=== PATIENT | female | born 1990 | race Caucasian/White ===

== ENCOUNTER → 2023-07-20 10:01 | Outpatient (BNVA) | payer SELFPAY | PROVIDERS: Visit Provider Physician Assistant Medical ==

== ENCOUNTER → 2024-01-05 14:50 | Outpatient (BNVA) | payer OTHER, SELFPAY | PROVIDERS: Visit Provider Physician Assistant Medical | DX: S46.812A Strain of other muscles, fascia and tendons at shoulder and upper arm level, left arm, initial encounter (principal); X50.0XXA Overexertion from strenuous movement or load, initial encounter | CPT/HCPCS: 73030; 99202 ==

== ENCOUNTER → 2024-01-09 11:38 | Outpatient (BNVA) | payer OTHER, SELFPAY | PROVIDERS: Visit Provider Physician Assistant Medical | DX: R20.2 Paresthesia of skin (principal); M79.89 Other specified soft tissue disorders; S46.812A Strain of other muscles, fascia and tendons at shoulder and upper arm level, left arm, initial encounter; X50.0XXA Overexertion from strenuous movement or load, initial encounter | CPT/HCPCS: 99213 ==

== ENCOUNTER → 2024-01-16 10:29 | Outpatient (BNVA) | payer OTHER, SELFPAY | PROVIDERS: Visit Provider Physician Assistant Medical | DX: S46.812A Strain of other muscles, fascia and tendons at shoulder and upper arm level, left arm, initial encounter (principal); X50.0XXA Overexertion from strenuous movement or load, initial encounter | CPT/HCPCS: 99213 ==

== ENCOUNTER 2024-01-22 09:22 | Outpatient (REF) | payer OTHER, SELFPAY ==
--- NOTE | ~2024-01-22 | MR_ITS ---
EXAMINATION: MR SHOULDER WITHOUT CONTRAST, LEFT CLINICAL INFORMATION: Decreased range of motion; distal edema. COMPARISON: No prior MR. X-ray left shoulder 01/05/2024. TECHNIQUE: MRI of the shoulder without contrast was performed on a Siemens 1.5 Lashanda unit using standard sequences. FINDINGS: -Study is somewhat limited due to patient body habitus and subsequent suboptimal [id number]. BONE MARROW: -No edema or abnormal infiltrating bone marrow signal. ROTATOR CUFF: -The supraspinatus tendon and muscle appear intact and normal in signal. -The infraspinatus tendon and muscle appear intact and normal in signal. -The subscapularis tendon and muscle appear intact and normal in signal. -The teres minor tendon and muscle appear intact and normal in signal. LONG HEAD OF THE BICEPS: -Normal in signal and intact. -Normal rotator interval appearance. ACROMION: -The undersurface of the acromion is neutral with no subacromial spur. ACROMIOCLAVICULAR JOINT: -Mild degenerative undersurface and superior first rib spurring. Minimal indentation upon the myotendinous junction of the anterior supraspinatus tendon outlet. LABRUM/CAPSULE: -No capsular abnormality. -Labrum is difficult to evaluate due to inherent signal loss from study limitation, although grossly no labral tear is evident. Mildly increased signal in the superior labrum is most likely on the basis of mild intrasubstance degeneration. No definite discrete tear. GLENOHUMERAL JOINT/MARROW: -No effusion. -No cartilage full-thickness defect. Mild cartilage thinning involving the articular aspect of the humerus medially. Glenoid cartilage is intact. OTHER: -There is a small amount of fluid/high signal in the subacromial/subdeltoid bursa suggesting mild bursitis. MR/MR shoulder LT wo con IMPRESSION: 1. Limited study due to patient habitus. 2. No fracture or gross tear of the rotator cuff. No rotator cuff muscular atrophy or abnormal signal. 3. Mild subacromial/subdeltoid bursitis. 4. Mild osteoarthrosis of the glenohumeral joint and AC joint. Electronically signed by: Homar Betancourt MD 01/27/2024 01:41 PM [facility] [place]
== END 2024-01-22 09:23 | disposition home or self-care (01) ==
LOC: HO.MRI 09:22
PROVIDERS: Visit Provider Physician Assistant Medical
DX: R22.32 Localized swelling, mass and lump, left upper limb (principal)
CPT/HCPCS: 73221

== ENCOUNTER → 2024-01-22 09:30 | Outpatient (BNV) | payer OTHER, SELFPAY | PROVIDERS: Visit Provider Radiology Diagnostic Radiology | DX: R22.32 Localized swelling, mass and lump, left upper limb (principal) | CPT/HCPCS: 73221 ==

== ENCOUNTER → 2024-01-30 13:48 | Outpatient (BNVA) | payer OTHER, SELFPAY | PROVIDERS: Visit Provider Physician Assistant Medical | DX: M75.52 Bursitis of left shoulder (principal); M70.812 Other soft tissue disorders related to use, overuse and pressure, left shoulder | CPT/HCPCS: 99213 ==

== ENCOUNTER 2024-02-29 08:16 | Outpatient (AMB) | payer OTHER, SELFPAY ==
--- NOTE | 2024-02-29 08:21 | MHC.OFFVIS ---
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 Patient reports that her and a coworker were lifting a 216 lb patient up that had fallen. They both tried boosting him up multiple times with their arms under him. Patient was seen at work connection, an MRI was obtained and was referred to orthopedics. She is attending PT however this increases her pain. States constant shooting pain and popping in her shoulder. Her arm goes numb with prolong holding items causing her to drop the item. Tylenol and Motrin no longer is providing her with relief. Currently she is working with restrictions. 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 She states on 01/04/24 she her and a co-worker were trying to help a patient from falling out of his bed , he weights 216lbs so that weight went onto her left shoulder, she felt a pop and a pull in the arm. She works at a [employer]. She is right hand dominant. She states since this incident she has pain in the shuolder which goes down to the elbow with lifting, she has weakness. She feels popping with lifting. She has pain and popping with activities like l up her pants. 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 Review of Systems Const All systems reviewed & are unremarkable except as noted in HPI and below Physical Exam Vital Signs: BMI result Body Mass Index 43.8 Const General: cooperative, healthy appearing, comfortable, no acute distress, well developed and alert Orientation/consciousness: patient oriented x3 HEENT Head: Yes normal to inspection, Yes normocephalic and Yes atraumatic Eyes General: appearance normal, both eyes and all related structures Resp Effort & Inspection: normal respiratory effort and able to speak in complete sentences Cardio Rate: regular rate Peripheral pulses: Peripheral pulses 2+ throughout GI Palpation (GI): Soft to palpation Skin Lesions: no lesions Rashes: no rashes Neuro General: patient oriented x3 Extrem Other: Left shoulder: Normal to inspection. Tenderness over the bicipital groove and along the deltoid region of the shoulder. Forward flexion to 175, external rotation to 90, internal rotation to S1. 5/5 RTC strength. Positive O?Garrick?s. NVI. Results Reviewed Results Reviewed: Xrays of the left shoulder 01/05/24 IMPRESSION: Mild degenerative spurring along the superior aspect of the acromion. /MR shoulder LT wo con 01/22/24 IMPRESSION: 1. Limited study due to patient habitus. 2. No fracture or gross tear of the rotator cuff. No rotator cuff muscular atrophy or abnormal signal. 3. Mild subacromial/subdeltoid bursitis. 4. Mild osteoarthrosis of the glenohumeral joint and AC joint. Assessment & Plan Assessment & Plan (1) Bicipital tendinitis, right shoulder: Code(s): M75.21 - Bicipital tendinitis, right shoulder Category: Medical (2) Tendinitis of right rotator cuff: Code(s): M75.81 - Other shoulder lesions, right shoulder Category: Medical Plan We discussed options in the office today. I recommended a cortisone injection since she has been working on physical therapy that has not had a 100% improvement; however, she would like to hold off at this time. We did change her anti-inflammatories to Celebrex which she will take for 2 weeks. We also updated her work limitations to avoid any type of lifting, pushing, pulling, or carrying greater than 10 pounds with the left arm for 4 weeks. If she feels in 2 weeks she has improvement, she will contact the office and we can give her an updated work note lifting all limitations and giving a return to full duty note, otherwise she will see me back in 4 weeks as planned. Orders: Orders PT Evaluation and Treatment Today M75.21 - Bicipital tendinitis, right shoulder, M75.81 - Other shoulder lesions, right shoulder Medications: New celecoxib (Celebrex) 200 mg PO BID 60 caps 3RF 30 days Patient Instructions: Scribed for Charles-Ladi lAberto PA-C, by Ryan Fay, medical records director, on 02/29/2024 at 8:30 AM EST.? I, Neal Alberto PA-C, have personally reviewed and agree with the information entered by the scribe. Coding Level of Care Code New Pt Level 3 (32781) Complex EM visit Add On G2211 Diagnoses Bicipital tendinitis, right shoulder M75.21 Tendinitis of right rotator cuff M75.81
[2024-02-29 08:22] VITALS: BMI 43.8
== END 2024-02-29 08:51 | disposition home or self-care (01) ==
PROVIDERS: Visit Provider Physician Assistant
DX: M75.21 Bicipital tendinitis, right shoulder (principal); M75.81 Other shoulder lesions, right shoulder
CPT/HCPCS: 99203; G2211

== ENCOUNTER → 2024-02-29 08:16 | Outpatient (BNVA) | payer OTHER, SELFPAY | PROVIDERS: Visit Provider Physician Assistant | DX: M75.21 Bicipital tendinitis, right shoulder (principal); M75.81 Other shoulder lesions, right shoulder | CPT/HCPCS: 99202 ==

== ENCOUNTER → 2024-03-01 13:03 | Outpatient (BNVA) | payer OTHER, SELFPAY | PROVIDERS: Visit Provider Physician Assistant Medical | DX: M75.22 Bicipital tendinitis, left shoulder (principal); M75.52 Bursitis of left shoulder; M19.012 Primary osteoarthritis, left shoulder | CPT/HCPCS: 99213 ==

== ENCOUNTER 2024-03-15 15:47 | Emergency (ER) | payer OTHER, SELFPAY ==
--- NOTE | ~2024-03-15 | US_ITS ---
EXAMINATION: US TRIPLEX UPPER EXTREMITY, LEFT CLINICAL INFORMATION: Pain and swelling COMPARISON: None available. TECHNIQUE: Color-flow triplex imaging with spectral analysis and compression Doppler was performed on the left upper extremity. FINDINGS: The left internal jugular, subclavian, and axillary veins are patent and free of thrombus. The imaged segment of the left brachiocephalic vein is patent. Spectral doppler waveforms are normal. The brachial, basilic, cephalic, radial, and ulnar veins are patent and compressible. US/US venous duplex UE LT IMPRESSION: No evidence of deep venous thrombosis involving the left upper extremity. Electronically signed by: Byron Quiroz MD 03/15/2024 07:49 PM EST
[2024-03-15 16:22] VITALS: BP 142/94; PULSE 82; RESP 16; TEMP 36.5; O2SAT 97; BMI 44.0
[2024-03-15 18:00] VITALS: BP 161/83; PULSE 81; RESP 18; O2SAT 99
[2024-03-15 20:00] VITALS: BP 123/94; PULSE 87; RESP 20; TEMP 36.8; O2SAT 99
--- NOTE | 2024-03-15 21:52 | ED.EXTPRO ---
HPI - Extremity Problem General Chief complaint: Extremity Injury, Upper Stated complaint: L shoulder inj 01/11 arm fingers swelling Time Seen by Provider: 03/15/24 21:40 Source: patient Mode of arrival: ambulatory Limitations: no limitations History of Present Illness ED Provider: DR. Giraldo HPI Narrative: 33-year-old female came in for evaluation of left upper extremity numbness and finger discoloration of the left hand and acute on chronic left shoulder pain. Patient had a work related injury to the left shoulder 2 months ago patient was evaluated by Orthopedic, work connection, and MRI was told to take anti-inflammatory medication. Patient returned today for evaluation of left hand swelling and tenderness and discoloration of the fingers sometimes, patient also here and feel popping sensation to the left shoulder since the injury. No CP, no SOB. Related Data Previous Rx's ?Medication ?Instructions ?Recorded celecoxib 200 mg capsule (Celebrex) 200 mg PO BID 30 days #60 caps 02/29/24 Allergies Allergy/AdvReac Type Severity Reaction Status Date / Time shellfish derived [shellfish] AdvReac Rash Verified 03/15/24 16:25 Review of Systems Review of Systems: All other systems are reviewed and are negative Constitutional: Reports as per HPI and Reports no additional constitutional complaints Eyes: Reports as per HPI and Reports no additional eye complaints Reports system reviewed and no additional complaints, except as documented Cardiovascular: Reports as per HPI and Reports no additional cardiovascular complaints Respiratory: Reports as per HPI and Reports no additional respiratory complaints Gastrointestinal: Reports as per HPI and Reports no additional gastrointestinal complaints Genitourinary: Reports no additional female genitourinary complaints Musculoskeletal: Reports no additional musculoskeletal complaints Skin/Breast: Reports system reviewed and no additional complaints, except as docu Psychiatric: Reports no additional psychiatric complaints Endocrine: Reports no additional endocrine complaints Hematologic/Lymphatic: Reports no additional hematologic/lymphatic complaints Allergic/Immunologic: Reports no additional allergic/immunologic complaints Reports system reviewed and no additional complaints, except as documented and Reports Abnormal speech present PMFSH Social History Social History Patient Tobacco Use Status: Current everyday Tobacco user Advance Directives: No Advance Directives Information Provided: No Current occupational status: employed 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 Blood pressure elevated. Heart rate normal. Respiratory rate normal. Temperature normal. Oxygen saturation normal. Appearance: Alert. Oriented X3. No acute distress. Head: Normal external exam. Normocephalic. Atraumatic. No Arora signs noted. No raccoon eyes noted Eyes: PERRLA. EOMI. Conjunctiva and sclera normal. Eyelids normal. ENT: TM's Normal. Pharynx normal. Uvula midline. Moist mucous membranes. No trismus noted. No drooling noted. No muffled voice noted. Neck: Normal inspection. Neck supple. FROM. No adenopathy. Thyroid Normal. No meningeal signs. No neck mass noted. CVS: Normal heart rate and rhythm. Heart sound normal. No murmurs noted. Pulses normal throughout. Respiratory: No respiratory distress. Painless inspiration. Breath sounds normal. No wheezes/rales/rhonchi noted. Chest nontender. No accessory muscle usage noted or decreased air movement noted. Abdomen: Soft and nontender. Bowel sounds normal in all 4 quadrants. No distention noted. No organomegaly noted. No visible injury noted. Back: No CVA tenderness. Full range of motion noted. Skin: Skin warm and dry. Normal skin color. Normal skin turgor. No rashes/lesions/lacerations noted. Extremities: Left shoulder: Full range of motion shoulder, good left brachial artery pulsation and left radial artery pulsation with cap refill less than 2 seconds, no motor deficit or weakness in the left upper extremity. Neuro: Oriented X 3. Cranial nerve exam: II-XII are grossly intact No motor deficit. No sensory deficit. Reflexes normal. Course Reevaluation(s) Reevaluation #1: Acute on chronic left shoulder pain. Time: 21:58 Medical Decision Making Differential Diagnosis Differential Diagnoses: The differential diagnosis associated with the presentation includes (Rotator cuff tendinitis, shoulder fracture, shoulder dislocation, DVT, neurovascular compromise) Admission/Observation Consideration of admission/observation: Escalation of care including admission/observation considered Discharge Plan Discharge Clinical Impression: Tendonitis of left rotator cuff Patient Disposition: Home, Self-Care Instructions: Rotator Cuff Tendinitis (ED) Prescriptions: No Action celecoxib [Celebrex] 200 mg capsule 200 mg PO BID 30 Days Qty: 60 3RF Referrals: Binh Smallwood MD [Physician] - Print Language: Albanian
[2024-03-15 22:17] VITALS: BP 123/94; PULSE 87; RESP 20; TEMP 36.8; O2SAT 99
== END 2024-03-15 22:18 | disposition home or self-care (01) ==
PROVIDERS: Emergency Provider Emergency Medicine
DX: M25.512 Pain in left shoulder (principal); R20.0 Anesthesia of skin; M79.89 Other specified soft tissue disorders; S46.012D Strain of muscle(s) and tendon(s) of the rotator cuff of left shoulder, subsequent encounter; X58.XXXD Exposure to other specified factors, subsequent encounter
CPT/HCPCS: 93971; 99283; 99284

== ENCOUNTER → 2024-03-15 16:54 | Outpatient (BNV) | payer OTHER, SELFPAY | PROVIDERS: Visit Provider Radiology Diagnostic Radiology | DX: M79.622 Pain in left upper arm (principal); R22.32 Localized swelling, mass and lump, left upper limb | CPT/HCPCS: 93971 ==

== ENCOUNTER 2024-03-28 08:31 | Outpatient (AMB) | payer OTHER, SELFPAY ==
--- NOTE | 2024-03-28 08:34 | MHC.OFFVIS ---
Vital Signs 03/28/24 08:40 Height 5 ft 7 in Weight 280 lb BMI 43.8 Intake Visit Reasons: OV- L shoulder injury DOI 01/04/24-4 WK follow up Intake Note: Bella is a 33 year old female who presents today for a follow up on a WC injury to left shoulder, DOI 01/04/24. Patient reports her pain has gotten worse, stating pain is above a 10 out of 10. She has swelling in fingers and they turn blue. She continues to have popping with movement. She would like to discuss moving forward with a cortisone injection today. No relief with celebrex. Allergies shellfish derived [shellfish] Adverse Reaction (Verified 03/28/24 08:40) Rash Medication List - Last Reconciled 03/28/24 by Neal Alberto PA-C celecoxib (Celebrex) 200 mg PO BID 30 days HPI HPI OV- L shoulder injury DOI 01/04/24-4 WK follow up: Details: 33-year-old female returns to the office today for follow-up for left shoulder pain after a work injury on 01/03. She has been working with physical therapy with increased pain. She states she develops swelling and numbness in the left arm with discoloration of her fingers. She has had to put a hold on physical therapy due to this. She continues to work with light duty restrictions. States she is in a lot of pain at the end of her shift. She states that she has continued to take Tylenol but the anti-inflammatory does not help with her pain. 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 Review of Systems Const All systems reviewed & are unremarkable except as noted in HPI and below Physical Exam Vital Signs: BMI result Body Mass Index 43.8 Const General: cooperative, healthy appearing, comfortable, no acute distress, well developed and alert Orientation/consciousness: patient oriented x3 HEENT Head: Yes normal to inspection, Yes normocephalic and Yes atraumatic Eyes General: appearance normal, both eyes and all related structures Resp Effort & Inspection: normal respiratory effort and able to speak in complete sentences Cardio Rate: regular rate Peripheral pulses: Peripheral pulses 2+ throughout GI Palpation (GI): Soft to palpation Skin Lesions: no lesions Rashes: no rashes Neuro General: patient oriented x3 Extrem Other: Left shoulder: Normal to inspection. Tenderness over the bicipital groove and along the deltoid region of the shoulder. Positive O?Garrick?s. NVI. Office Procedures AMB Joint Injection/Aspiration Joint Injection/Aspiration Primary Site: left shoulder Prep: site was prepped using aseptic technique, ethochloride spray was applied and injection warnings given Injected: 80 mg of, DepoMedrol, with 8 mL of, 1% plain lidocaine and in the subcromial space Approach Used: posterolateral Procedure: The patient tolerated the procedure well and there was some relief with the local anesthesia Coding 13827 - Glenohumeral/Tronchanteric Bursa/Intraarticular Procedure code (CPT) selection complete Assessment & Plan Assessment & Plan (1) Tendinitis of right rotator cuff: Code(s): M75.81 - Other shoulder lesions, right shoulder Category: Medical (2) Bicipital tendinitis, right shoulder: Code(s): M75.21 - Bicipital tendinitis, right shoulder Category: Medical Plan We discussed options today which include corticosteroid injection which we did proceed with. Patient tolerated the procedure well. I did explain that the 1st couple of days may be uncomfortable however the steroid usually takes effect within 3-4 weeks. I strongly encouraged he continue with physical therapy. Tylenol and NSAID use as previously discussed. An EMG/nerve conduction study has been ordered at the left upper extremity to further eval the source of her numbness. I did explain that this be in an acute symptom from her injury it may improve with therapy. I would like to see her back in 6-8 weeks for a follow-up. If symptoms persist or worsen over the next few weeks she can contact our office and we can order an MRI of the left shoulder before her follow-up appointment. Coding Level of Care Code Est Pt Level 3 (27200) Complex EM visit Add On G2211 Diagnoses Tendinitis of right rotator cuff M75.81 Bicipital tendinitis, right shoulder M75.21 CPT Codes Coding - Joint 7: 67979 - Glenohumeral/Tronchanteric Bursa/Intraarticular ([id number])
[2024-03-28 08:40] VITALS: BMI 43.8
== END 2024-03-28 09:10 | disposition home or self-care (01) ==
PROVIDERS: Visit Provider Physician Assistant
DX: M75.81 Other shoulder lesions, right shoulder (principal); M75.21 Bicipital tendinitis, right shoulder; Z04.2 Encounter for examination and observation following work accident
CPT/HCPCS: 20610; 99213

== ENCOUNTER → 2024-03-28 08:31 | Outpatient (BNVA) | payer OTHER, SELFPAY | PROVIDERS: Visit Provider Physician Assistant | DX: M75.22 Bicipital tendinitis, left shoulder (principal) | CPT/HCPCS: 20610; 99212; J1010; J2003 ==

== ENCOUNTER 2024-04-03 08:00 | Outpatient (RCR) | payer OTHER, SELFPAY ==
--- NOTE | 2024-01-24 11:39 | MHC.PT.EP ---
[facility] [place] Office [place] Office [place] Office [address] Andra Avelar [address] [phone] F: [phone] F: [phone] F: [phone] F: [phone] Physical Therapy Plan of Care Date of Evaluation: 01/24/24 Date of Surgery: Diagnosis: This is a 33 yo female presenting to skilled PT with a script for L trap strain. Assessment: This is a 33 yo female presenting to skilled PT with a script for L trap strain. 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 She did not fall. She heard a pop during the incident. She is being followed by [facility] work connection (dx ? RTC tear, trap strain), she had an MRI this past Tuesday. She has not been referred to ortho yet. Pain is dull but increases with time during the day, lifting with and without weight, sleeping (needs to sleep in a recliner). Her pain starts at the neck, UT, into scap (burning), into the shoulder and down the arm into her fingers. She gets numbness and swelling in her fingers. Assessment reveals pain that ranges from up to a 10/10 at the worst. Patient demos decreased L shoulder and cervical ROM, strength of L shoulder and scap stabilizers, TTP at GHJ joint line, UT, medial border of the scap and bicep and impaired posture with forward head and rounded shoulders. Based on functional limitations, impaired QOL and pain tolerance patient is a good candidate for skilled PT 2x/wk for 4wks. 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 Manual therapy to restore motion and function. Therapeutic exercise to improve strength and flexibility. Neuromuscular re-education for posture and balance. Therapeutic activities to return to functional activities of daily living. Electronically signed by: Kathleen Phelan PT Please sign and return to therapist. Thank you for your referral.
--- NOTE | 2024-05-11 07:57 | MHC.PT.DC ---
[facility] [place] Office [place] Office [place] Office [address] Andra Avelar [address] [phone] F: [phone] F: [phone] F: [phone] F: [phone] Physical Therapy Discharge Report Diagnosis: This is a 33 yo female presenting to skilled PT with a script for L trap strain. Date of Surgery: Date of Evaluation: 01/24/24 Date of Discharge: 05/11/24 Treatments to Date: 11 Cancellations to Date: 0 No Shows to Date: 0 Discharge Status: Insurance Declined Tx Recommend MD Follow-up Discharge Summary: 04/10: Our request for more visits was denied. I educated her on this and she did not see the point in doing todays appointment (last approved). She will wait to see what pain management says. Educated her to reach out if there is anything I can help her with otherwise it is out of my hands. Educated to continue HEP. Chart was closed after 30 days. Electronically signed by: Kathleen Phelan PT Please sign and return to therapist. Thank you for your referral.
== END 2024-05-11 07:57 | disposition home or self-care (01) ==
LOC: HO.PTCHIC 08:00
PROVIDERS: Referring Provider Orthopaedic Surgery; Visit Provider Physician Assistant Medical
DX: S46.812A Strain of other muscles, fascia and tendons at shoulder and upper arm level, left arm, initial encounter (principal)
CPT/HCPCS: 97014; 97110; 97140; 97161; 97164

== ENCOUNTER → 2024-05-10 09:58 | Outpatient (BNVA) | payer OTHER, SELFPAY | PROVIDERS: Visit Provider Physician Assistant Medical | DX: M75.52 Bursitis of left shoulder (principal) | CPT/HCPCS: 99213 ==

== ENCOUNTER 2024-05-24 13:15 | Outpatient (REF) | payer OTHER, SELFPAY ==
--- NOTE | 2024-05-24 13:18 | EMG_ITS ---
Chief complaint: WC injury, pulling on left arm, left shoulder pain, numbness on 3rd to 5th digits Reason for referral: Evaluate for ulnar neuropathy versus brachial plexopathy Referred by: Neal FORRESTER Procedure done: Left upper extremity NCS/EMG Precautions and/or limitations: None The limb temperature was monitored continuously and remained between 32-36 degrees C during the performance of the NCS. Nerve Conduction Studies Anti Sensory Summary Table ?Stim Site NR Onset (ms) Norm Onset (ms) Peak (ms) Norm Peak (ms) O-P Amp (?V) Norm O-P Amp Site1 Site2 Delta-0 (ms) Dist (cm) David (m/s) Norm David (m/s) Left Lat Ante Brach Cutan Anti Sensory (Lat Forearm) Lat Biceps ? 1.3 2.2 41.9 Lat Biceps Lat Forearm 1.3 0.0 Left Median Anti Sensory (2nd Digit) Wrist ? 3.0 3.8 <3.6 35.3 >10 Wrist 2nd Digit 3.0 14.0 47 Left Ulnar Anti Sensory (5th Digit) Wrist ? 2.8 3.5 <3.7 32.7 >15.0 Wrist 5th Digit 2.8 14.0 50 Motor Summary Table ?Stim Site NR Onset (ms) Norm Onset (ms) O-P Amp (mV) Norm O-P Amp iAmp (mV) Amp (1st) (%) Site1 Site2 Delta-0 (ms) Dist (cm) David (m/s) Norm David (m/s) Left Median Motor (Abd Poll Brev) Wrist ? 3.7 <3.9 12.8 >4.5 15.8 100.0 Elbow Wrist 4.7 21.0 45 >45 Elbow ? 8.4 12.2 15.2 95.3 Left Ulnar Motor (Abd Dig Minimi) Wrist ? 2.9 <3.0 9.3 >5 11.6 100.0 B Elbow Wrist 4.2 20.5 49 >45 B Elbow ? 7.1 8.8 11.6 94.6 A Elbow B Elbow 1.4 10.0 71 >45 A Elbow ? 8.5 8.7 11.7 93.5 Comparison Summary Table ?Stim Site NR Peak (ms) Norm Peak (ms) P-T Amp (?V) Site1 Site2 Delta-P (ms) Norm Delta (ms) Left Median/Radial Dig I Comparison (Digit 1 - 10cm) Median ? 3.2 <2.9 102.9 Median Radial 0.4 Radial ? 2.8 <2.8 38.5 EMG ?Side Muscle Nerve Root Ins Act Fibs Psw Amp Dur Poly Recrt Int Pat Comment Left 1stDorInt Ulnar C8-T1 Nml Nml Nml Nml Nml 0 Nml Complete Left FlexCarRad Median C6-7 Nml Nml Nml Nml Nml 0 Nml Complete Left Biceps Musculocut C5-6 Nml Nml Nml Nml Nml 0 Nml Complete Left Triceps Radial C6-7-8 Nml Nml Nml Nml Nml 0 Nml Complete Left Deltoid Axillary C5-6 Nml Nml Nml Nml Nml 0 Nml Complete Paraspinal EMG ?Side Muscle Nerve Root Ins Act Fibs Psw Comment Left Cervical Upper Rami Nml Nml Nml Left Cervical Mid Rami Nml Nml Nml Left Cervical Lower Rami Nml Nml Nml FINDINGS: Left median sensory nerve showed prolonged peak latency. Interlatency difference between left median and radial sensory nerves was 0.4. All other nerves tested were within normal. Concentric needle EMG was performed in selected muscles of the value in cervical paraspinals. Study did not reveal signs of electric abnormalities as shown in the table above. IMPRESSION: 1. This is an abnormal study. 2. There is no electrodiagnostic evidence for ulnar neuropathy, brachial plexopathy, or cervical radiculopathy. 3. Perhaps mild left median neuropathy at the wrist, possibly left Carpal Tunnel Syndrome. CLINICAL COMMENT: Left mild Carpal Tunnel Syndrome findings most likely incidental, does not correlate with symptoms. Thank you for your kind referral. Aidee Sprague MD, ASA Board Certified, [place] [employer] and Rehabilitation (ABPMR) Board Certified, [place] Board of Electrodiagnostic Medicine (ABEM) [place] [id number] [facility]
--- OUTSIDE RECORDS SUMMARY | 2024-05-24 16:05 | XMS_ITS | Clinical Summary ---
Author Organization [facility] Address [address] [address] Phone Care Team Providers Care Materials Intern Name Role Phone Pcp, Unknown Primary Care Provider Unavailabl e Social History Tobacco Use Types Packs/Day Years Used Date Smoking Tobacco: Never Assessed Education Answer Date Recorded Are you interested in more education? Not on dov e 05/10/2024 Are you concerned about learning? Not on file 05/10/2024 No 05/10/2024 No 05/10/2024 Digital Access Answer Date Recorded No 05/10/2024 No 05/10/2024 Reliable internet access at home? Not on file 05/10/2024 Device with a working camera? Not on file Sex and Gender Information Value Date Recorded Sex Assigned at Not on file Gender Identity Not on file Sexual Orientation Not on file Plan of Treatment Upcoming Encounters Date Type Department Care Team (Late st Contact Info) Description 06/04/2024 2:00 PM EDT Office Visit [facility] [address] [place] [id number] Owen Cervantes PA-C [address] [place] [address] [facility] [place] [address] [email or web address] Health Maintenance Due Date Last Done Comments Adult Td,Tdap Booster 1990 DEPRESSION SCREENING 2002 SMOKING Hx and SMOKELESS TOB ACCO SCREENING 06/11/2003 HEPATITIS C SCREENING 2008 HIV ONE-TIME SCREENING (18-6 5 YEARS) 2008 PAP SMEAR 06/11/2011 INFLUENZA VACCINE (#1) 2023 COVID-19 VACCINE (2023-2 5 season) 2023 HEPATITIS A VACCINES Aged Out No long er eligible based on patient's age to complete this topic HIB VACCINES Aged Out No longer eligi ble based on patient's age to complete this topic MENINGOCOCCAL VACCINES (ACWY) Aged Out No longer eligible based on patient's age to complete this topic PNEUMOCOCCAL VACCINES (0-49 years) Aged Out No longer eligible based on patient's age to complete this topic Medical Devices Not on file Care Teams Materials Intern Relationship Specialty Start Date End Date Pcp, Unknown PCP - General 05/10/24 Additional Source Comments The information contained in this document represents components of the legal health record. It is not the complete legal health record.[facility]
--- OUTSIDE RECORDS SUMMARY | 2024-05-24 16:05 | XMS_ITS | Clinical Summary ---
Author Organization [facility] Address [address] [place] [address] Care Team Providers Care Countersinker Name Role Phone Unavailable Primary Care Provider Unavailabl e Social History Tobacco Use Types Packs/Day Years Used Date Smoking Tobacco: Never Assessed Comments Unknown Sex and Gender Information Value Date Recorded Sex Assigned at Not on file Legal Sex Female 5:00 PM EST Gender Identity Not on file Sexual Orientation Not on file Plan of Treatment Health Maintenance Due Date Last Done Comments DTaP,Tdap,and Td Vaccines (1 - Tdap) 2009 Hepatitis B Vaccines (1 of 3 - 19+ 3-dose series) 2009 Cervical Cancer Screening: P ap Smear 06/11/2011 Depression Screening 02/17/2022 HIV Screening 02/17/2022 Hepatitis C Screening 02/17/2022 Social Influencers of Health Screening 02/17/2022 COVID-19 Vaccine (2023-2 5 season) 2023 Influenza Vaccine (#1) 2023 HIB Vaccines Aged Out No longer eligi ble based on patient's age to complete this topic HPV Vaccines Aged Out No longer eligi ble based on patient's age to complete this topic Hepatitis A Vaccines Aged Out No long er eligible based on patient's age to complete this topic IPV Vaccines Aged Out No longer eligi ble based on patient's age to complete this topic MMR Vaccines Aged Out No longer eligi ble based on patient's age to complete this topic Meningococcal ACWY Vaccine Aged Out N o longer eligible based on patient's age to complete this topic Meningococcal B Vacine Aged Out No lo nger eligible based on patient's age to complete this topic Pneumococcal Vaccine: Pediat rics (0 to 5 Years) and At-Risk Patients (6 to 64 Years) Aged Out No longer eligible b ased on patient's age to complete this topic RSV Immunization Patients Un hayden 20 months Aged Out No longer eligible b ased on patient's age to complete this topic Varicella Vaccines Aged Out No longer eligible based on patient's age to complete this topic
== END 2024-05-24 13:16 | disposition home or self-care (01) ==
LOC: HO.NEURO 13:15
PROVIDERS: Visit Provider Physician Assistant
DX: R20.0 Anesthesia of skin (principal); R20.2 Paresthesia of skin
CPT/HCPCS: 95886; 95909

== ENCOUNTER → 2024-05-24 13:18 | Outpatient (BNV) | payer OTHER, SELFPAY | PROVIDERS: Visit Provider Physical Medicine & Rehabilitation | DX: G56.12 Other lesions of median nerve, left upper limb (principal) | CPT/HCPCS: 95886; 95909 ==

== ENCOUNTER → 2024-06-11 09:38 | Outpatient (BNVA) | payer OTHER, SELFPAY | PROVIDERS: Visit Provider Physician Assistant Medical | DX: M25.512 Pain in left shoulder (principal); M75.52 Bursitis of left shoulder; R60.0 Localized edema | CPT/HCPCS: 99214 ==

== ENCOUNTER → 2024-06-25 10:08 | Outpatient (BNVA) | payer OTHER, SELFPAY | PROVIDERS: Visit Provider Physician Assistant Medical | DX: S46.812D Strain of other muscles, fascia and tendons at shoulder and upper arm level, left arm, subsequent encounter (principal); X50.0XXD Overexertion from strenuous movement or load, subsequent encounter; R60.1 Generalized edema | CPT/HCPCS: 99213 ==

== ENCOUNTER 2024-06-30 14:19 | Outpatient (REF) | payer OTHER, SELFPAY ==
--- NOTE | ~2024-06-30 | MR_ITS ---
EXAMINATION: MR CERVICAL SPINE WITHOUT IV CONTRAST History: CERVICALGIA Technique: Sagittal T1, T2 and STIR, bilateral sagittal oblique T2, and axial T1, T2 and gradient echo images of the cervical spine were obtained per departmental protocol. Comparison: None available. Findings: The vertebral bodies maintain normal height, alignment, and marrow signal intensity. The intervertebral discs maintain normal height and hydration. At C2-3, there is no evidence of disc herniation, central spinal stenosis, or neural foraminal narrowing. At C3-4, there is no evidence of disc herniation, central spinal stenosis, or neural foraminal narrowing. At C4-5, there is no evidence of disc herniation, central spinal stenosis, or neural foraminal narrowing. At C5-6, there is a mild disc bulge. There is no evidence of disc herniation, central spinal stenosis, or neural foraminal narrowing. At C6-7, there is no evidence of disc herniation, central spinal stenosis, or neural foraminal narrowing. At C7-T1, there is a tiny right paramedian disc protrusion. There is no central spinal or neural foraminal stenosis. There is a probable small central disc protrusion/herniation at the T3-4 level. This is only visualized on the sagittal images. The spinal cord demonstrates normal signal intensity. The visualized paraspinal soft tissues are unremarkable. MR/MR cervical spine wo con Impression: 1. Tiny right paramedian disc protrusion at C6-7. No evidence of central spinal stenosis or neural foraminal narrowing. 2. Probable small central disc protrusion/herniation at the T3-4 level. Electronically signed by: Clay Hernández MD 07/03/2024 07:35 AM EDT
--- OUTSIDE RECORDS SUMMARY | 2024-06-30 14:21 | XMS_ITS | Data Portability ---
Author Organization [facility], Main Office Address [address] [facility] [address] [place] [id number] Care Team Providers Care Home Visitor Name Role Phone JESSICA LIM Primary Care Provider Assessment No assessment recorded. Plan of Treatment Reminders Order Date Submit Date Provider Last Modified By Organization Details Last Modified Time Details Appointments None record ed. Lab PPD (purif ied protei n deriva tive), skin test 2019 formerly [facility] In-Office Order, Internal Use Only DO Not Attach Compendium DO Not Attach Compendium, Do Not Delete/merge, [id number] 0 11:13:41 Referral None record ed. Procedures None record ed. Surgeries None record ed. Imaging None record ed. Medication Orders sertra line 100 mg tablet 2020 021 [email or web address] [facility]/Pharmacy #[id number], [address] [place], [address], 1 11:57:42 loraze germán 0.5 mg tablet 2020 021 NADJA [facility]/Pharmacy #[id number], [address] [place], [address], 1 11:34:27 Tubers ol 5 tub. unit/0 .1 mL intrad ermal inject ion soluti on 2019 020 [email or web address] Not available 10:56:34 Patient TargetsNo targets recorded. Patient Instructions Encounter Date Encounter Id Patient Instructions Last Modified By Organization Details Last Modified Time 06/13/2020 [id number] body mass index: care instructions [email or web address] Not available 06/13/2020 12:33:40 learning about healthy weight [email or web address] Not available 06/13/2020 12:33:40 insomnia: care instructions [email or web address] Not available 06/13/2020 11:34:21 11/13/2020 [id number] When You Want to Lose Weight: Care Instructions [email or web address] Not available 11/13/2020 11:27:39 Reason for Referral None Reported. Results Created Date Observation Date Name Description Value Unit Range Abnormal Flag Note LastModifiedBy Organization Detail LastModifiedTime 01/18/2001/19/2020 BMP, serum or plasm a glucose 91 mg/dL (70-99 ) Not Available [facility] (Centralized Electronic Ordering - All Locations) Patient Can Go To The Location Of Their Choice, 01/19/2020 00:49:13 01/18/2001/19/2020 BMP, serum or plasm a BUN 11 mg/dL (6-20) Not Available [facility] (Centralized Electronic Ordering - All Locations) Patient Can Go To The Location Of Their Choice, 01/19/2020 00:49:13 01/18/2001/19/2020 BMP, serum or plasm a creatinine 0.9 mg/dL (0.5-1 .0) Not Available [facility] (Centralized Electronic Ordering - All Locations) Patient Can Go To The Location Of Their Choice, 01/19/2020 00:49:13 01/18/2001/19/2020 BMP, serum or plasm a sodium 142 mmol/ L (133-1 45) Not Available [facility] (Centralized Electronic Ordering - All Locations) Patient Can Go To The Location Of Their Choice, 01/19/2020 00:49:13 01/18/2001/19/2020 BMP, serum or plasm a potassium 4.2 mmol/ L (3.6-5 .2) Not Available [facility] (Centralized Electronic Ordering - All Locations) Patient Can Go To The Location Of Their Choice, 01/19/2020 00:49:13 01/18/2001/19/2020 BMP, serum or plasm a chloride 102 mmol/ L (98-10 7) Not Available [facility] (Centralized Electronic Ordering - All Locations) Patient Can Go To The Location Of Their Choice, 01/19/2020 00:49:13 01/18/2001/19/2020 BMP, serum or plasm a bicarbonate 22 mmol/ L (22-29 ) Not Available [facility] (Centralized Electronic Ordering - All Locations) Patient Can Go To The Location Of Their Choice, 01/19/2020 00:49:13 01/18/2001/19/2020 BMP, serum or plasm a anion gap 18 (4-17) high Not Available [facility] (Centralized Electronic Ordering - All Locations) Patient Can Go To The Location Of Their Choice, 01/19/2020 00:49:13 01/18/2001/19/2020 BMP, serum or plasm a calcium 9.7 mg/dL (8.6-1 0.5) Not Available [facility] (Centralized Electronic Ordering - All Locations) Patient Can Go To The Location Of Their Choice, 01/19/2020 00:49:13 01/18/2001/19/2020 BMP, serum or plasm a est GFR non 88 mL/mi n/1.7 3_M2 Creat inine based estim ated glome rular filtr ation rate (eGFR ) is calcu lated using the Chron ic Kidne y Disea se Epide miolo gy Colla borat ion (CKD- EPI). The CKD-E PI creat inine equat ion has not been valid ated in child js (<18 years ), pregn ant women or in some racia l or ethni c subgr oups other than Cauca sians and Afric an Ameri cans. Not Available [facility] (Centralized Electronic Ordering - All Locations) Patient Can Go To The Location Of Their Choice, 01/19/2020 00:49:13 01/18/2001/19/2020 BMP, serum or plasm a est GFR 102 mL/mi n/1.7 3_M2 Creat inine based estim ated glome rular filtr ation rate (eGFR ) is calcu lated using the Chron ic Kidne y Disea se Epide miolo gy Colla borat ion (CKD- EPI). The CKD-E PI creat inine equat ion has not been valid ated in child js (<18 years ), pregn ant women or in some racia l or ethni c subgr oups other than Kaseya jenna and Afric an [place] cans. Not Available [facility] (Centralized Electronic Ordering - All Locations) Patient Can Go To The Location Of Their Choice, 01/19/2020 00:49:13 01/18/2001/19/2020 TSH, serum or plasm a TSH 2.45 uIU/m L (0.4-4 .00) Not Available [facility] (Centralized Electronic Ordering - All Locations) Patient Can Go To The Location Of Their Choice, 01/19/2020 01:06:35 01/18/2001/19/2020 lipid panel , serum cholesterol, total 154 mg/dL (<200) Not Available [facility] (Centralized Electronic Ordering - All Locations) Patient Can Go To The Location Of Their Choice, 01/19/2020 06:21:59 01/18/2001/19/2020 lipid panel , serum triglyceride 141 mg/dL (<150) Not Available [facility] (Central[facility] Ordering - All Locations) Patient Can Go To The Location Of Their Choice, 01/19/2020 06:21:59 01/18/2001/19/2020 lipid panel , serum HDL chol 34 mg/dL (>39) low Not Available [facility] (Centralized Electronic Ordering - All Locations) Patient Can Go To The Location Of Their Choice, 01/19/2020 06:21:59 01/18/2001/19/2020 lipid panel , serum LDL cholesterol, calculated 92 mg/dL (0-130 ) Not Available [facility] (Centralized Electronic Ordering - All Locations) Patient Can Go To The Location Of Their Choice, 01/19/2020 06:21:59 01/18/2001/19/2020 lipid panel , serum non HDL cholesterol (calc) 120 mg/dL (<160) Not Available [facility] (Centralized Electronic Ordering - All Locations) Patient Can Go To The Location Of Their Choice, 01/19/2020 06:21:59 02/15/2002/15/2020 PPD (juani fied prote in deriv ative ), skin test TB negati ve Not Available In-Office Order Internal Use Only DO Not Attach Compendium DO Not Attach Compendium, Do Not Delete/merge, [id number] 02/15/2020 10:32:17 Result Notes None recorded. Problems Name Problem SNOMED Code Status Onset Date Resolution Date Notes Provider Name and Address Organization Details Recorded Time Acute pharyngi tis 740883092 Completed 201210/02/2013 RECORDED 08/23/19 13 10:44AM BY FRIEDA FERREIRAATI ON/ADDEN DUM Not Available [facility] 4 14:51:14 Allergic rhinitis 91244985 Completed 201310/02/2013 RECORDED 05/18/19 14 1:08PM BY LIDA ROMEO MA, ANNOTATI ON/ADDEN DUM Not Available [facility] 4 14:51:14 Screenin g for malignan t neoplasm of cervix Completed 201310/02/2013 RECORDED 05/18/19 14 1:08PM BY LIDA ROMEO MA, ANNOTATI ON/ADDEN DUM Not Available [facility] 4 14:51:14 Follow-u p encounte r Completed 201310/02/2013 RECORDED 05/18/19 14 1:08PM BY LIDA ROMEO MA, ANNOTATI ON/ADDEN DUM Not Available [facility] 4 14:51:14 Influenz a vaccine needed [id number] 06 Completed 200910/02/2013 RECORDED 01/16/20 10 2:54PM BY FANY MALDONADO I, OFFICE VISIT Not Available [facility] 4 14:51:14 Pure hypercho lesterol emia 637977619 Completed 201310/02/2013 RECORDED 05/18/19 14 1:08PM BY LIDA ROMEO MA, FRIEDAATI ON/ADDEN DUM Not Available [facility] 4 14:51:14 Pain in limb 79154745 Completed 201310/02/2013 IMPRESSI ON: HIT LEFT FOREARM ON WALL, CHECK XRAY TO RULE OUT FRACTURE ; RECORDED 05/18/19 14 1:08PM BY LIDA ROMEO MA, ANNOTATI ON/ADDEN DUM Not Available [facility] 4 14:51:14 Malaise and fatigue 904463925 Completed 201310/02/2013 RECORDED 05/18/19 14 1:08PM BY LIDA ROMEO MA, ANNOTATI ON/ADDEN DUM Not Available [facility] 4 14:51:14 Nausea [id number] Completed 201310/02/2013 IMPRESSI ON: UP NEG.; RECORDED 05/18/19 14 1:08PM BY LIDA ROMEO MA, ANNOTATI ON/ADDEN DUM Not Available [facility] 4 14:51:15 Administ ration of Haemophi tello influenz ae type b vaccine Completed 200910/02/2013 RECORDED 12/25/19 10 1:42PM BY ASHA WATERS, HISTORIC AL SUMMARY Not Available [facility] 4 14:51:15 Active or passive immuniza tion Completed 200910/02/2013 RECORDED 12/25/19 10 1:46PM BY ASHA WATERS, HISTORIC AL SUMMARY Not Available [facility] 4 14:51:15 Administ ration of viral vaccine Completed 200910/02/2013 RECORDED 12/25/19 10 1:47PM BY ASHA WATERS, HISTORIC AL SUMMARY Not Available [facility] 4 14:51:15 Administ ration of poliomye litis vaccine Completed 200910/02/2013 RECORDED 12/25/19 10 1:43PM BY ASHA WATERS, HISTORIC AL SUMMARY Not Available [facility] 4 14:51:15 Infectiv e hepatiti s immuniza tion Completed 200910/02/2013 RECORDED 12/25/19 10 1:20PM BY YAJAIRASCDANTE WATERS, HISTORIC AL SUMMARY Not Available [facility] 4 14:51:15 Administ ration of diphther ia, pertussi s, and tetanus vaccine Completed 200910/02/2013 RECORDED 12/25/19 10 1:22PM BY ASHA WATERS, HISTORIC AL SUMMARY Not Available [facility] 4 14:51:15 Administ ration of bacteria l and viral vaccine Completed 200910/02/2013 RECORDED 12/25/19 10 1:35PM BY ASHA WATERS, HISTORIC AL SUMMARY Not Available [facility] 4 14:51:15 Administ ration of measles and mumps and rubella vaccine Completed 200910/02/2013 RECORDED 12/25/19 10 1:44PM BY ASHA WATERS, HISTORIC AL SUMMARY Not Available [facility] 4 14:51:15 Administ ration of tetanus vaccine Completed 201310/02/2013 RECORDED 05/18/19 14 1:08PM BY LIDA ROMEO MA, ANNOTATI ON/ADDEN DUM Not Available [facility] 4 14:51:15 Varicell a vaccinat ion Completed 200910/02/2013 RECORDED 12/25/19 10 1:45PM BY ASHA WATERS, HISTORIC AL SUMMARY Not Available [facility] 4 14:51:15 Patient status finding [id number] Completed 201310/02/2013 RECORDED 05/18/19 14 2:01PM BY LIDA ROMEO MA, ANNOTATI ON/ADDEN DUM Not Available [facility] 4 14:51:16 Pregnanc y [id number] Completed 201310/02/2013 RECORDED 05/18/19 14 1:08PM BY LIDA ROMEO MA, ANNOTATI ON/ADDEN DUM Not Available [facility] 4 14:51:16 Eruption [id number] Completed 201310/02/2013 IMPRESSI ON: UNCLEAR CAUSE FOR RASH. UNLIKELY POISON KEVIN SINCE NO VESICLES WITH MINIMAL ITCH. DOUBT INSECT BITE SINCE HAS PROGRESS ED TO OTHER LEG. DO NOT WANT TO DO TOPICAL STEROID TRIAL SINCE IS 6 MONTHS ; RECORDED 05/18/19 14 1:08PM BY LIDA ROMEO MA, ANNOTATI ON/ADDEN DUM Not Available [facility] 4 14:51:16 Adult health examinat ion Completed 201310/02/2013 RECORDED 05/18/19 14 2:01PM BY LIDA ROMEO MA, ANNOTATI ON/ADDEN DUM Not Available [facility] 4 14:51:16 Tubercul osis screenin g Completed 201010/02/2013 RECORDED 02/27/20 11 2:26PM BY BERNARDA WILLIAMSON MA, NURSE VISIT Not Available [facility] 4 14:51:16 Morbid obesity 346094594 Active 2013 Shira stevenson MA - [facility] 9 14:52:12 Acute pharyngi tis 023866538 Completed 201210/25/2013 RECORDED 08/23/19 13 10:44AM BY SCOTTY LAY, FRIEDAATI ON/ADDEN DUM Not Available [facility] 4 13:01:52 Allergic rhinitis 85422933 Completed 201310/25/2013 RECORDED 05/18/19 14 1:08PM BY LIDA ROMEO MA, ANNOTATI ON/ADDEN DUM Not Available [facility] 4 13:01:52 Screenin g for malignan t neoplasm of cervix Completed 201310/25/2013 RECORDED 05/18/19 14 1:08PM BY LIDA ROMEO MA, ANNOTATI ON/ADDEN DUM Not Available [facility] 4 13:01:52 Follow-u p encounte r Completed 201310/25/2013 RECORDED 05/18/19 14 1:08PM BY LIDA ROMEO MA, ANNOTATI ON/ADDEN DUM Not Available [facility] 4 13:01:52 Influenz a vaccine needed [id number] 06 Completed 200910/25/2013 RECORDED 01/16/20 10 2:54PM BY FANY MALDONADO I, OFFICE VISIT Not Available [facility] 4 13:01:52 Pure hypercho lesterol emia 103457788 Completed 201310/25/2013 RECORDED 05/18/19 14 1:08PM BY LIDA ROMEO MA, ANNOTATI ON/ADDEN DUM Not Available [facility] 4 13:01:52 Pain in limb 42065493 Completed 201310/25/2013 IMPRESSI ON: HIT LEFT FOREARM ON WALL, CHECK XRAY TO RULE OUT FRACTURE ; RECORDED 05/18/19 14 1:08PM BY LIDA ROMEO MA, ANNOTATI ON/ADDEN DUM Not Available [facility] 4 13:01:52 Malaise and fatigue 905134713 Completed 201310/25/2013 RECORDED 05/18/19 14 1:08PM BY LIDA ROMEO MA, ANNOTATI ON/ADDEN DUM Not Available [facility] 4 13:01:52 Nausea 675162191 Completed 201310/25/2013 IMPRESSI ON: UP NEG.; RECORDED 05/18/19 14 1:08PM BY LIDA ROMEO MA, ANNOTATI ON/ADDEN DUM Not Available [facility] 4 13:01:52 Administ ration of Haemophi tello influenz ae type b vaccine Completed 200910/25/2013 RECORDED 12/25/19 10 1:42PM BY ASHA WATERS, HISTORIC AL SUMMARY Not Available [facility] 4 13:01:52 Active or passive immuniza tion Completed 200910/25/2013 RECORDED 12/25/19 10 1:46PM BY ASHA WATERS, HISTORIC AL SUMMARY Not Available [facility] 4 13:01:52 Administ ration of viral vaccine Completed 200910/25/2013 RECORDED 12/25/19 10 1:47PM BY ASHA WATERS, HISTORIC AL SUMMARY Not Available [facility] 4 13:01:53 Administ ration of poliomye litis vaccine Completed 200910/25/2013 RECORDED 12/25/19 10 1:43PM BY ASHA WATERS, HISTORIC AL SUMMARY Not Available [facility] 4 13:01:53 Infectiv e hepatiti s immuniza tion Completed 200910/25/2013 RECORDED 12/25/19 10 1:20PM BY ASHA WATERS, HISTORIC AL SUMMARY Not Available [facility] 4 13:01:53 Administ ration of diphther ia, pertussi s, and tetanus vaccine Completed 200910/25/2013 RECORDED 12/25/19 10 1:22PM BY ASHA WATERS, HISTORIC AL SUMMARY Not Available [facility] 4 13:01:53 Administ ration of bacteria l and viral vaccine Completed 200910/25/2013 RECORDED 12/25/19 10 1:35PM BY ASHA WATERS, HISTORIC AL SUMMARY Not Available [facility] 4 13:01:53 Administ ration of measles and mumps and rubella vaccine Completed 200910/25/2013 RECORDED 12/25/19 10 1:44PM BY ASHA WATERS, HISTORIC AL SUMMARY Not Available [facility] 4 13:01:53 Administ ration of tetanus vaccine Completed 201310/25/2013 RECORDED 05/18/19 14 1:08PM BY LIDA ROMEO MA, LESLEY ON/ADDEN DUM Not Available [facility] 4 13:01:53 Varicell a vaccinat ion Completed 200910/25/2013 RECORDED 12/25/19 10 1:45PM BY ASHA WATERS, HISTORIC AL SUMMARY Not Available [facility] 4 13:01:53 Patient status finding [id number] Completed 201310/25/2013 RECORDED 05/18/19 14 2:01PM BY LIDA ROMEO MA, LESLEY ON/ADDEN DUM Not Available [facility] 4 13:01:53 Pregnanc y [id number] Completed 201310/25/2013 RECORDED 05/18/19 14 1:08PM BY LIDA ROMEO MA, ANNOTATI ON/ADDEN DUM Not Available [facility] 4 13:01:53 Eruption [id number] Completed 201310/25/2013 IMPRESSI ON: UNCLEAR CAUSE FOR RASH. UNLIKELY POISON KEVIN SINCE NO VESICLES WITH MINIMAL ITCH. DOUBT INSECT BITE SINCE HAS PROGRESS ED TO OTHER LEG. DO NOT WANT TO DO TOPICAL STEROID TRIAL SINCE IS 6 MONTHS ; RECORDED 05/18/19 14 1:08PM BY LIDA ROMEO MA, ANNOTATI ON/ADDEN DUM Not Available [facility] 4 13:01:53 Adult health examinat ion Completed 201310/25/2013 RECORDED 05/18/19 14 2:01PM BY LIDA ROMEO MA, ANNOTATI ON/ADDEN DUM Not Available [facility] 4 13:01:53 Tubercul osis screenin g Completed 201010/25/2013 RECORDED 02/27/20 11 2:26PM BY BERNARDA WILLIAMSON MA, NURSE VISIT Not Available [facility] 4 13:01:53 Acute pharyngi tis 993643098 Completed 201210/26/2013 RECORDED 08/23/19 13 10:44AM BY SCOTTY LAY, FRIEDAATI ON/ADDEN DUM Not Available [facility] 4 03:51:20 Allergic rhinitis 01630094 Completed 201310/26/2013 RECORDED 05/18/19 14 1:08PM BY LIDA ROMEO MA, ANNOTATI ON/ADDEN DUM Not Available [facility] 4 03:51:20 Screenin g for malignan t neoplasm of cervix Completed 201310/26/2013 RECORDED 05/18/19 14 1:08PM BY LIDA ROMEO MA, ANNOTATI ON/ADDEN DUM Not Available [facility] 4 03:51:20 Follow-u p encounte r Completed 201310/26/2013 RECORDED 05/18/19 14 1:08PM BY LIDA ROMEO MA, ANNOTATI ON/ADDEN DUM Not Available [facility] 4 03:51:20 Influenz a vaccine needed [id number] 06 Completed 200910/26/2013 RECORDED 01/16/20 10 2:54PM BY FANY MALDONADO I, OFFICE VISIT Not Available [facility] 4 03:51:20 Pure hypercho lesterol emia 796888617 Completed 201310/26/2013 RECORDED 05/18/19 14 1:08PM BY LIDA ROMEO MA, ANNOTATI ON/ADDEN DUM Not Available [facility] 4 03:51:20 Pain in limb 68002553 Completed 201310/26/2013 IMPRESSI ON: HIT LEFT FOREARM ON WALL, CHECK XRAY TO RULE OUT FRACTURE ; RECORDED 05/18/19 14 1:08PM BY LIDA ROMEO MA, ANNOTATI ON/ADDEN DUM Not Available [facility] 4 03:51:20 Malaise and fatigue 436888685 Completed 201310/26/2013 RECORDED 05/18/19 14 1:08PM BY LIDA ROMEO MA, ANNOTATI ON/ADDEN DUM Not Available [facility] 4 03:51:20 Nausea 173299199 Completed 201310/26/2013 IMPRESSI ON: UP NEG.; RECORDED 05/18/19 14 1:08PM BY LIDA ROMEO MA, ANNOTATI ON/ADDEN DUM Not Available [facility] 4 03:51:21 Administ ration of Haemophi tello influenz ae type b vaccine Completed 200910/26/2013 RECORDED 12/25/19 10 1:42PM BY ASHA WATERS, HISTORIC AL SUMMARY Not Available [facility] 4 03:51:21 Active or passive immuniza tion Completed 200910/26/2013 RECORDED 12/25/19 10 1:46PM BY ASHA WATERS, HISTORIC AL SUMMARY Not Available [facility] 4 03:51:21 Administ ration of viral vaccine Completed 200910/26/2013 RECORDED 12/25/19 10 1:47PM BY PRISCDANTE A JT, HISTORIC AL SUMMARY Not Available [facility] 4 03:51:21 Administ ration of poliomye litis vaccine Completed 200910/26/2013 RECORDED 12/25/19 10 1:43PM BY ASHA WATERS, HISTORIC AL SUMMARY Not Available [facility] 4 03:51:21 Infectiv e hepatiti s immuniza tion Completed 200910/26/2013 RECORDED 12/25/19 10 1:20PM BY ASHA WATERS, HISTORIC AL SUMMARY Not Available [facility] 4 03:51:21 Administ ration of diphther ia, pertussi s, and tetanus vaccine Completed 200910/26/2013 RECORDED 12/25/19 10 1:22PM BY ASHA WATERS, HISTORIC AL SUMMARY Not Available [facility] 4 03:51:21 Administ ration of bacteria l and viral vaccine Completed 200910/26/2013 RECORDED 12/25/19 10 1:35PM BY ASHA WATERS, HISTORIC AL SUMMARY Not Available [facility] 4 03:51:21 Administ ration of measles and mumps and rubella vaccine Completed 200910/26/2013 RECORDED 12/25/19 10 1:44PM BY ASHA WATERS, HISTORIC AL SUMMARY Not Available [facility] 4 03:51:21 Administ ration of tetanus vaccine Completed 201310/26/2013 RECORDED 05/18/19 14 1:08PM BY LIDA ROMEO MA, FRIEDAATI ON/ADDEN DUM Not Available [facility] 4 03:51:21 Varicell a vaccinat ion Completed 200910/26/2013 RECORDED 12/25/19 10 1:45PM BY ASHA WATERS, HISTORIC AL SUMMARY Not Available [facility] 4 03:51:21 Patient status finding [id number] Completed 201310/26/2013 RECORDED 05/18/19 14 2:01PM BY LIDA ROMEO MA, FRIEDAATI ON/ADDEN DUM Not Available [facility] 4 03:51:21 Pregnanc y [id number] Completed 201310/26/2013 RECORDED 05/18/19 14 1:08PM BY LIDA ROMEO MA, ANNOTATI ON/ADDEN DUM Not Available [facility] 4 03:51:21 Eruption [id number] Completed 201310/26/2013 IMPRESSI ON: UNCLEAR CAUSE FOR RASH. UNLIKELY POISON KEVIN SINCE NO VESICLES WITH MINIMAL ITCH. DOUBT INSECT BITE SINCE HAS PROGRESS ED TO OTHER LEG. DO NOT WANT TO DO TOPICAL STEROID TRIAL SINCE IS 6 MONTHS ; RECORDED 05/18/19 14 1:08PM BY LIDA ROMEO MA, ANNOTATI ON/ADDEN DUM Not Available [facility] 4 03:51:21 Adult health examinat ion Completed 201310/26/2013 RECORDED 05/18/19 14 2:01PM BY LIDA ROMEO MA, ANNOTATI ON/ADDEN DUM Not Available [facility] 4 03:51:21 Tubercul osis screenin g Completed 201010/26/2013 RECORDED 02/27/20 11 2:26PM BY BERNARDA WILLIAMSON MA, NURSE VISIT Not Available [facility] 4 03:51:21 Depressi ve disorder 04692470 Completed 06/13/2020 Jessica stevenson [facility] 1 11:19:13 Liam estevez [id number] Active Jessica stevenson [facility] 5 13:40:17 Major depressi on in full remissio n [id number] Completed 06/13/2020 Jessica stevenson [facility] 1 11:28:23 Exposure to SARS-CoV -2 Completed 11/08/2019 Removal Reason: Problem added by user bhargav williamson from the COVID-19 watch flag AN Fernandez [facility] 0 11:34:33 Depressi ve disorder 97531551 Completed 202011/13/2020 Jessica stevenson [facility] 1 11:19:13 Problem Notes None recorded. Procedures Surgical History Date Name Laterality Status Provider Name and Address Organization Details Recorded Time 09/06/19 21 Suture/Staple removal cancelled Christy Ellison [facility] 09/04/2020 00:34:19 12/20/19 13 Caesarean Section completed Bernarda Mixon MA MA - [facility] 08/10/2018 15:02:00 Imaging Results None recorded. Procedure Notes None recorded. Medical Equipment None Reported. Allergies No known drug allergies Medications Name Sig Start Date Stop Date Status Note LastModified by Organization Details LastModified Time sertralin e hcl 50 mg tabs 06/24 completed Not Available Not Available Not Available cyclobenz aprine 10 mg tablet TAKE 1 TABLET BY MOUTH AT BEDTIME NEEDED FOR SPASMS 10/15 completed Not Available Not Available Not Available azithromy concetta 250 mg tablet TAKE 2 TABLETS (500 MG) BY ORAL ROUTE ONCE DAILY FOR 1 DAY THEN 1 TABLET (250 MG) BY ORAL ROUTE ONCE DAILY FOR 4 DAYS 07/22 completed Not Available Not Available Not Available ibuprofen 800 mg tablet TAKE 1 TABLET BY MOUTH EVERY 6 TO 8 HOURS NEEDED FOR 90 DAYS active Not Available Not Available No t Available fluconazo le 150 mg tablet Take 1 tablet every 72 hours by oral route for 3 days. 07/22 completed Not Available Not Available Not Available benzonata te 200 mg capsule Take 1 capsule 3 times a day by oral route for 5 days. 07/22 completed Not Available Not Available Not Available Tubersol 5 tub. unit/0.1 mL intraderm al injection solution Inject 1 mL by intrader mal route. 06/13 completed Not Available Not Available Not Available sertralin e 100 mg tablet TAKE 1 TABLET BY MOUTH EVERY DAY FOR 90 DAYS active Not Available Not Available No t Available Tamiflu 75 mg capsule Take 1 capsule twice a day by oral route for 5 days. 05/11 completed Not Available Not Available Not Available amoxicill in 500 mg tablet Take 2 tablets every 8 hours by oral route for 7 days. 12/20 completed Not Available Not Available Not Available Fluticaso ne Propionat e (Inhal) 50 mcg/BLIST inhl powd DAILY DIVIDED INTO 1 SPRAY EACH NOSTRIL 05/18 completed RECORDED 05/18/19 14 1:21PM BY LIDA ROMEO MA, OFFICE VISIT; Not Available Not Available Not Available lorazepam 0.5 mg tablet TAKE 1 TABLET BY MOUTH EVERY DAY NEEDED active Not Available Not Available No t Available sertralin e 50 mg tablet Take 1 tablet every day by oral route as directed for 90 days. 06/13 completed Not Available Not Available Not Available ParaGard T 380A 380 square mm intrauter ine device ONE TIME DOSE 06/24 completed RECORDED 05/18/19 14 1:37PM BY USAMA SARAH, OFFICE VISIT; Not Available Not Available Not Available intrauter ine device (IUD) active Not Available Not Available Not Available Chantix Continuin g Month Box 1 mg tablet Take 1 tablet twice a day by oral route for 30 days. 06/13 completed Not Available Not Available Not Available Chantix Starting Month Box 0.5 mg (11)-1 mg (42) tablets in dose pack TAKE DIRECTED PER PACKAGE INSTRUCT IONS FOR 30 DAYS 06/13 completed Not Available Not Available Not Available Vitals Date Recorded Body height Body mass index (BMI) Body weight Oxygen saturation Oxygen saturation in Arterial blood by Pulse oximetry Heart rate Body temperature Systolic blood pressure Diastolic blood pressure Provider Name and Address Organization Details Last Updated DateTime 1 170.18 cm 54.8 kg/m2 103081. 03 g 97 % 97 % 102 /min 98.06 [degF] 125 mm[Hg] 77 mm[Hg] Scotty Lay MA [facility] 1 10:56:07 Date Recorded Body height Body mass index (BMI) Body weight Oxygen saturation Oxygen saturation in Arterial blood by Pulse oximetry Heart rate Body temperature Systolic blood pressure Diastolic blood pressure Provider Name and Address Organization Details Last Updated DateTime 1 170.18 cm 56 kg/m2 382518. 28 g 98 % 98 % 103 /min 98.24 [degF] 121 mm[Hg] 73 mm[Hg] Scotty Lay MA [facility] 1 10:05:49 Date Recorded Body height Body mass index (BMI) Body weight Oxygen saturation Oxygen saturation in Arterial blood by Pulse oximetry Heart rate Body temperature Provider Name and Address Organization Details Last Updated DateTime 1 170.18 cm 54.4 kg/m2 052852. 25 g 98 % 98 % 81 /min 98.24 [degF] Scotty Lay MA [facility] 11:01:01 Date Recorded Systolic blood pressure Diastolic blood pressure Provider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
--- OUTSIDE RECORDS SUMMARY | 2024-06-30 14:21 | XMS_ITS | Clinical Summary ---
Author Organization [facility] ity Address [address] [place] [address] Care Team Providers Care Business Consult Name Role Phone Unavailable Primary Care Provider [...] Vaccine (2023-2 5 season) 2023 Influenza Vaccine (Season Ended) 2024 HIB Vaccines Aged Out No longer eligi [...] age to complete this topic Meningococcal B Vaccine Aged Out No l onger eligible based on patient's age to complete [...]
== END 2024-06-30 14:20 | disposition home or self-care (01) ==
LOC: HO.MRI 14:19
PROVIDERS: Visit Provider Internal Medicine
DX: M54.2 Cervicalgia (principal)
CPT/HCPCS: 72141

== ENCOUNTER → 2024-06-30 14:32 | Outpatient (BNV) | payer OTHER, SELFPAY | PROVIDERS: Visit Provider Radiology Diagnostic Radiology | DX: M54.2 Cervicalgia (principal) | CPT/HCPCS: 72141 ==

== ENCOUNTER 2024-07-06 09:07 | Outpatient (AMB) | payer OTHER, SELFPAY ==
[2024-07-06 09:16] VITALS: BP 142/90; PULSE 107; O2SAT 98; BMI 44.5
--- NOTE | 2024-07-06 09:16 | MHC.OFFVIS ---
Vital Signs 07/06/24 09:16 Height 5 ft 7 in Weight 284 lb BMI 44.5 BP 142/90 H Blood Pressure Location Lt brachial Position Sitting Pulse 107 H Pulse Source Pulse Oximeter Pulse Oximetry (%) 98 Oxygen Delivery Method Room Air Intake Visit Reasons: Shoulder Injury WC Hydrometeorologist Required: No Allergies shellfish derived [shellfish] Adverse Reaction (Verified 07/06/24 09:16) Rash Medication List - Last Reconciled 07/06/24 by Marybeth Hernandez, INTERACTIVE MARKETING STRATEGIST celecoxib (Celebrex) 200 mg PO BID 30 days cyclobenzaprine 5 mg PO TID gabapentin 200 mg (2 x 100 mg) PO BEDTIME meloxicam 7.5 mg PO DAILY PRN HPI Comments Details: The patient is a 34-year-old female presenting with persistent left shoulder pain subsequent to a work-related incident on January 04, 2024. 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 The character of the pain is primarily a squeezing sensation localized to the shoulder blade and at times radiating down to the elbow. It is associated with activities such as raising her arm over her head (which causes a popping sensation) and reaching across her back, notably affecting her daily activities and work. Previous management included physical therapy and a steroid injection administered at the back of the shoulder 03/2024, both of which provided no lasting relief. The patient reports having used anti-inflammatory medications like Celebrex, without significant improvement. Currently, she is taking gabapentin and Flexeril for pain, primarily to aid sleep at night, although daytime pain persists. MRI shoulder reviewed, results as per below. MRI cervical spine reviewed, results as per below. Additionally, nerve conduction studies suggested some mild level of carpal tunnel syndrome. Denies current use of anticoagulants Denies implantable device, pacemaker or defibrillator. Endorses daily tobacco use, cigarette smoker. Denies current use of illicit substances. 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 - Neurological: Reports intermittent hand swelling, finger discoloration; denies ongoing neck pain. - General: Denies effective pain relief from current treatments, reports sleep impairment due to pain. Physical Exam Vital Signs: Last Vital Signs Pulse 107 H 07/06/24 09:16 BP 142/90 H 07/06/24 09:16 Pulse Ox 98 07/06/24 09:16 Oxygen Delivery Method Room Air 07/06/24 09:16 BMI result Body Mass Index 44.5 General: awake, alert, oriented. Answers questions appropriately. Fully engaged in examination. Skin: warm, dry, intact HEENT: Normocephalic. Hearing intact. Cardiac: External chest normal in appearance. Respiratory: No cough, audible wheezing or stridor. Abdomen: without gross distension. MS: No obvious swelling or deformities. Left Shoulder: Tenderness to palpation posteriorly over left lateral scapula. No tenderness anterior shoulder. No pain with palpation of biceps tendon. Pain with overhead reach. Mild pain with reaching behind back. No pain with cross body reach. Neurological: Oriented to person, place, time and situation. Thought process intact. No gait abnormalities appreciated. Psychiatric: Appropriate mood and affect. Good judgment and insight. Results Reviewed Results Reviewed: 07/01/23 MRI C/S Findings: The vertebral bodies maintain normal height, alignment, and marrow signal intensity. The intervertebral discs maintain normal height and hydration. At C2-3, there is no evidence of disc herniation, central spinal stenosis, or neural foraminal narrowing. At C3-4, there is no evidence of disc herniation, central spinal stenosis, or neural foraminal narrowing. At C4-5, there is no evidence of disc herniation, central spinal stenosis, or neural foraminal narrowing. At C5-6, there is a mild disc bulge. There is no evidence of disc herniation, central spinal stenosis, or neural foraminal narrowing. At C6-7, there is no evidence of disc herniation, central spinal stenosis, or neural foraminal narrowing. At C7-T1, there is a tiny right paramedian disc protrusion. There is no central spinal or neural foraminal stenosis. There is a probable small central disc protrusion/herniation at the T3-4 level. This is only visualized on the sagittal images. The spinal cord demonstrates normal signal intensity. The visualized paraspinal soft tissues are unremarkable. Impression: 1. Tiny right paramedian disc protrusion at C6-7. No evidence of central spinal stenosis or neural foraminal narrowing. 2. Probable small central disc protrusion/herniation at the T3-4 level. 05/24/24 EMG IMPRESSION: 1. This is an abnormal study. 2. There is no electrodiagnostic evidence for ulnar neuropathy, brachial plexopathy, or cervical radiculopathy. 3. Perhaps mild left median neuropathy at the wrist, possibly left Carpal Tunnel Syndrome. CLINICAL COMMENT: Left mild Carpal Tunnel Syndrome findings most likely incidental, does not correlate with symptoms. 01/22/24 MRI Left Shoulder FINDINGS: -Study is somewhat limited due to patient body habitus and subsequent suboptimal [id number]. BONE MARROW: -No edema or abnormal infiltrating bone marrow signal. ROTATOR CUFF: -The supraspinatus tendon and muscle appear intact and normal in signal. -The infraspinatus tendon and muscle appear intact and normal in signal. -The subscapularis tendon and muscle appear intact and normal in signal. -The teres minor tendon and muscle appear intact and normal in signal. LONG HEAD OF THE BICEPS: -Normal in signal and intact. -Normal rotator interval appearance. ACROMION: -The undersurface of the acromion is neutral with no subacromial spur. ACROMIOCLAVICULAR JOINT: -Mild degenerative undersurface and superior first rib spurring. Minimal indentation upon the myotendinous junction of the anterior supraspinatus tendon outlet. LABRUM/CAPSULE: -No capsular abnormality. -Labrum is difficult to evaluate due to inherent signal loss from study limitation, although grossly no labral tear is evident. Mildly increased signal in the superior labrum is most likely on the basis of mild intrasubstance degeneration. No definite discrete tear. GLENOHUMERAL JOINT/MARROW: -No effusion. -No cartilage full-thickness defect. Mild cartilage thinning involving the articular aspect of the humerus medially. Glenoid cartilage is intact. OTHER: -There is a small amount of fluid/high signal in the subacromial/subdeltoid bursa suggesting mild bursitis. IMPRESSION: 1. Limited study due to patient habitus. 2. No fracture or gross tear of the rotator cuff. No rotator cuff muscular atrophy or abnormal signal. 3. Mild subacromial/subdeltoid bursitis. 4. Mild osteoarthrosis of the glenohumeral joint and AC joint. Assessment & Plan Assessment & Plan (1) Left shoulder pain: Code(s): M25.512 - Pain in left shoulder Category: Medical Plan We will proceed with a two-step approach to manage the patient's left shoulder pain. Initially, an US guided Suprascapular diagnostic nerve block will be performed. If relief is observed, will proceed with an ultrasound-guided suprascapular peripheral nerve stimulator. This approach aims to disrupt pain signal transmission and promote sustained pain relief. I discussed with the patient the management options for her left shoulder pain, focusing on a diagnostic injection to test for nerve contribution to her symptoms. If successful, we will consider a suprascapular nerve stimulator, explaining this would modify pain signal transmission. I reviewed the risks and benefits, detailing how this intervention may yield long-term pain relief. I emphasized the need for a trial diagnostic injection first and clarified all procedural aspects, dressing maintenance, and follow-up. The patient was encouraged to ask questions and review provided materials, with reassurance that follow-up will be scheduled post Workmen's Comp approval. Patient was informed and verbally consented to the use of an ambient scribe for clinic note documentation during this visit. Patient Instructions: - Await scheduling for diagnostic nerve block injection - Maintain current medication regimen as prescribed - Monitor symptoms and keep a detailed pain diary post-injection - Contact clinic for any questions or concerns regarding treatment plan - Review [facility] pamphlet and website, call the office with any questions Coding Level of Care Code New Pt Level 4 (44103) Complex EM visit Add On G2211 Diagnoses Left shoulder pain M25.512
--- OUTSIDE RECORDS SUMMARY | 2024-07-06 09:34 | XMS_ITS | Clinical Summary ---
Author Organization [facility] ity Address [address] [place] [address] Care Team Providers Care Hotel Supplies Salesperson Name Role Phone Unavailable Primary Care Provider [...]
--- OUTSIDE RECORDS SUMMARY | 2024-07-06 09:34 | XMS_ITS | Data Portability ---
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 set up Major depr ession in full remission 17216918 depression fully treated on sertraline 50mg, had a component of as well, pt is a single parent, I recc she resume therapy, she promises she will call [id number] Jessica randolph Main Office [address] [address] [place] [address] 06/24/2016 11:09:40 06/24/2016 12:06:06 Injury of ankle 909099147 S99.912A gave kyle wrap, rec cont aleve, ice, elevate - check xray - if + will get ortho eval, if neg. go to PT Injury of foot 298342453 S99.922A ? hairline fx 4th/5th metatarsal [id number] Oneil Norman PA-C Main Office [address] [place] [address] 08/10/2018 14:46:19 08/10/2018 15:50:58 Otitis media 17267874 H66.92 Candidiasis of vagina 72 203528 B37.3 [id number] [facility] [address] [address] [place] [address] 12/20/2018 13:34:26 12/20/2018 14:18:18 Adult health examination 826741629 Z00.00 pap is overdue, we will set up appt with Dr Bang, gregorio talk on weight loss and exercise Screening for malignant neoplasm of cervix 127466021 Z12.4 we will setup appt, has an IUD in place overdue for pap Fatigue 30251366 R53.83 check labs and refer for sleep study, snores and is morbidly obese Body mass index 40+ - severely obese 005507958 E66.01 Z68.43 long talk on diet, exercise suggested [id number] Christy Roa Main Office [address] [address] [place] [address] 01/05/2019 13:29:47 01/05/2019 14:35:05 Acute pharyngitis 556500729 J02.9 salt water gargles, otc pain medication as needed, rapid TC negative, culture sent out for strep Hemoptysis 25408904 R04. 2 Vaginitis 60287308 N76.0 given as pt often gets yeast infections with antibioitc s Cough 07010580 R05 will do chest xray to rule out pneumonia with presenting symptoms. Use tessalon and start zpack for possible pneumonia. [id number] Jessica BestAmelie josetomasa Main Office [address] [address] [place] [address] 07/23/2019 13:18:41 07/23/2019 16:27:01 Exposure to viral disease [id number] 49796 Z03.818 pt is a [employer] WORK[employer], 2 days of chills, cough and had a fever 2 days ago. mother in ICU with lung process but tested negative for Cvodi 2 times. I spoke with her mom's ID doc Dr. Coleman today, she recc pt get tested naya to see if mom had exposure Anxiety 21546681 F41.9 pt is very anxious, mom in ICU. will treat with low dose lorazepam. pt knows to avoid driving or drinking with med [id number] Jessica Ayanna tomasa [facility] [address] [facility] [address] [place] [address] 10/16/2019 06:53:27 10/16/2019 13:02:04 Major depression single episode, in partial remission 08567983 F32.4 pt with low mood, anxiety, lorazepam does not help much, will start on sertraline and getinto counseling .. pt is open to it now. [id number] Jessica LedesmaDarinel tomasa Main Office [address] [facility] [address] [place] [address] 01/18/2020 13:44:35 01/18/2020 15:21:51 Adult health examination 690458624 Z00.00 pap is overdue, she will set up appt with Dr Bang, long talk on weight loss and exercise, frieving over losing her mom from CHF. Screening for malignant neoplasm of cervix 718970199 Z12.4 pt will setup appt, has an IUD in place overdue for pap Body mass index 40+ - severely obese 928694029 E66.01 Z68.41 long talk on diet, exercise suggested [facility] Hypercholesterolemia 136 94247 E78.00 Malaise and fatigue 2717 73265 R53.81 check labs and look for early DM Family his tory of cardiac disorder 245011997 Z82.49 mother this year from CHF, pt is asking if there is a genetic component to be screened for, I asked her mothers primary in office for now the biggest risk factors are smoking, morbid obesity, poor eating habits and being sedentary, advised she start on those and I will loo into Major depr ession in full remission 79215712 F32.5 depression fully treated on sertraline 50mg, had a component of as well, pt is a single parent, I recc she resume therapy, she promises she will call Tobacco de pendence syndrome 59362614 F17.290 pt is aware if she feels any depression she should stop naya, [id number] Scotty Lay MA Main Office [address] [facility] [address] [place] [address] 02/12/2020 12:56:04 02/12/2020 13:09:24 Tuberculosis screening 549680656 Z11.1 [id number] Laura Ma MA Main Office [address] [address] [place] [address] 02/15/2020 10:04:53 02/15/2020 10:26:21 Tuberculosis screening 684504189 Z11.1 [id number] Jessica BestAndryAmelie andreo Main Office [address] [address] [place] [address] 06/13/2020 10:47:28 06/13/2020 11:34:44 Major depression single episode, in partial remission 33532240 F32.4 mood still low at times, grieving her mother, pt is interested in increasing dose to 100mg a day so will do that encouraged exercise. Insomnia 810477484 G47.0 9 uses lorazepam prn for sleep, not more than 1-2 times a week, she understand s its addictive potential Body mass index 40+ - severely obese 341668757 E66.01 long talk on diet, exercise suggested WW [id number] Jessica BestAndryAmelie josetomasa Main Office [address] [address] [place] [address] 08/29/2020 09:55:52 08/29/2020 10:25:35 Laceration of finger 849132183 S61.219A left thumb 3 stitches healing well, no evidence of ligamentou s injury return in 1 week for suture removal [id number] Jessica BestAndryAmelie andreo Main Office [address] [address] [place] [address] 11/13/2020 10:51:21 11/13/2020 12:17:06 Major depression single episode, in partial remission 39455210 F32.4 mood doing better, lost mom from CHF Morbid obesity 150156728 E66.01 will work on weight loss, I [...] 02/12/2020 1 [place] [facility] Bella Vicente Alexander [id number] Chris Alexander 02/15/2020 1 [place] Bella Vicente Alexander [id number] Chris Alexander 06/13/2020 1 [place] Bella Vicente Alexander [id number] Chris Alexander 08/29/2020 1 [place] Bella Vicente Alexander [id number] Chris Alexander 11/13/2020 1 [place] Bella Vicente Alexander [id number] Chris Alexnader Notes Date Note Type Note Provider Name and Address Organization Details Recorded Time 06/13/2020 text/html Pt is here for a follow-up of depression and insomnia. PT lat her mother last year, still feels low at times, she is on sertraline 50mg but thinks she could increase the dose. Lives with her son, is a [employer] WORK[employer] and finishing [employer] in 04/10. Sleep can be poor,s he takes lorazepam rarely. Got a dog which gts her active. Jessica stevenson, [facility] 06/13/2020 12:34:05 08/29/2020 text/html Here for check o n sutures of left thumb. PT cut left thumb 3 days ago, to ER for stitches, healing well but still hurts, pt wanted check that bone ok. moves normally Jessica stevenson [facility] 08/29/2020 10:23:20 11/13/2020 text/html PT is here [...] at risk for heart problem. Jessica stevenson, [facility] 11/13/2020 11:38:15 OBGyn Episode No OBEpisode recorded.
== END 2024-07-06 09:38 | disposition home or self-care (01) ==
LOC: HO.PMC 09:07
PROVIDERS: Visit Provider Registered Nurse Emergency
DX: M25.512 Pain in left shoulder (principal)
CPT/HCPCS: 99204; G2211

== ENCOUNTER → 2024-07-06 09:07 | Outpatient (BNVA) | payer OTHER, SELFPAY | PROVIDERS: Visit Provider Registered Nurse Emergency | DX: M25.512 Pain in left shoulder (principal) | CPT/HCPCS: 99202 ==

== ENCOUNTER → 2024-07-10 10:40 | Outpatient (BNVA) | payer OTHER, SELFPAY | PROVIDERS: Visit Provider Physician Assistant Medical | DX: M25.512 Pain in left shoulder (principal) | CPT/HCPCS: 99213 ==

== ENCOUNTER 2024-07-26 06:08 | Outpatient (REF) | payer OTHER, SELFPAY | END 2024-07-26 06:09 | disposition home or self-care (01) | LOC: CF 06:08 | PROVIDERS: Visit Provider Internal Medicine | DX: M25.512 Pain in left shoulder (principal) | CPT/HCPCS: 64418; J2795 ==

== ENCOUNTER 2024-07-26 09:25 | Outpatient (AMB) | payer OTHER, SELFPAY ==
[2024-07-26 09:30] VITALS: BP 124/84; PULSE 118; O2SAT 99
--- NOTE | 2024-07-26 09:30 | MHC.OFFVIS ---
Vital Signs 07/26/24 09:30 07/26/24 10:00 Height 5 ft 7 in BP 124/84 124/84 Blood Pressure Location Lt brachial Lt brachial Position Sitting Sitting Pulse 118 H 103 H Pulse Source Pulse Oximeter Pulse Oximeter Pulse Oximetry (%) 99 96 Oxygen Delivery Method Room Air Room Air Intake Visit Reasons: Left dx suprascapular NB Allergies shellfish derived [shellfish] Adverse Reaction (Verified 07/26/24 09:32) Rash HPI HPI Left dx suprascapular NB: Details: Patient presents for scheduled procedure. Denies any recent cough, cold, infection, fever or other significant changes in medical history since last office visit. 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 Standard monitors were applied. The patient was placed prone on the table. The area overlying the peripheral nerve was widely prepped with chloraprep, allowed to dry and sterilely draped. Using ultrasound, the appropriate landmarks were identified. The skin overlying the target was anesthetized with 0.5% lidocaine. A 21 gauge 100mm echostim needle was advanced under ultrasound guidance to the suprascapular notch. Verification using lateral and AP views. Aspiration was negative for heme and synovial fluid. 2 cc of ropivacaine 0.5% was injected around each targeted nerve. The needles were removed, skin cleansed and a sterile bandage was applied. The patient tolerated the procedure well and no complications were encountered. Following the procedure the patient's vital signs were stable. The patient was discharged home in good condition with post-procedural instructions. Time Out: Immediately prior to the procedure, the following was verbally confirmed that there is a signed consent form and that the correct patient, planned procedure, site and side are consistent with documentation and that necessary equipment and/or blood products are available prior to the start of the case. Complications: none EBL: <5 cc 63413 - Suprascapular Procedure code (CPT) selection complete Assessment & Plan Assessment & Plan (1) Left shoulder pain: Code(s): M25.512 - Pain in left shoulder Category: Medical Plan Patient is status post diagnostic left suprascapular nerve block. Patient tolerated procedure well and was discharged home in stable condition with discharge instructions. All questions were answered. We will follow-up via telephone or in clinic to assess response to therapy. A follow-up appointment was made during today's visit. Orders: Orders US guide needle placement Today Poonam Miller APRN, ACADEMIC ADVISING DIRECTOR M25.512 - Pain in left shoulder AMB Nerve Block Today Steven Zurita MD M25.512 - Pain in left shoulder Coding Level of Care Code Procedure Only Diagnoses Left shoulder pain M25.512 CPT Codes Nerve Block - Nerve Block 4: 91078 - Suprascapular ([id number])
[2024-07-26 10:00] VITALS: BP 124/84; PULSE 103; O2SAT 96
--- OUTSIDE RECORDS SUMMARY | 2024-07-26 10:04 | XMS_ITS | Data Portability ---
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 09/27/2014 12:42:51 09/27/2014 13:29:46 Morbid obesity 850196000 will work on weight loss and get to the gym [place] [id number] pt a sked for help getting surgery for cholecyste ctomy set up Major depr ession in full remission 68926866 depression fully treated on sertraline 50mg, had a component of as well, pt is a single parent, I recc she resume therapy, she promises she will call [id number] Oneil Norman PA-C Main Office [address] [address] [place] [address] 06/24/2016 11:09:40 06/24/2016 12:06:06 Injury of ankle 604015337 S99.912A gave kyle wrap, rec cont aleve, ice, elevate - check xray - if + will get ortho eval, if neg. go to PT Injury of foot 060994126 S99.922A ? hairline fx 4th/5th metatarsal [id number] Gerry Simon MD Main Office [address] [address] [place] [address] 08/10/2018 14:46:19 08/10/2018 15:50:58 Otitis media 50761046 H66.92 Candidiasis of vagina 72 358019 B37.3 [id number] Jessica randolph MD Main Office [address] [address] [place] [address] 12/20/2018 13:34:26 12/20/2018 14:18:18 Adult health examination 342660612 Z00.00 pap is overdue, we will set up appt with Dr Bang, long talk on weight loss and exercise Screening for malignant neoplasm of cervix 026959445 Z12.4 we will setup appt, has an IUD in place overdue for pap Fatigue 85419509 R53.83 check labs and refer for sleep study, snores and is morbidly obese Body mass index 40+ - severely obese 328827577 E66.01 Z68.43 long talk on diet, exercise suggested WW [id number] Gerry Simon MD Main Office [address] [address] [place] [address] 01/05/2019 13:29:47 01/05/2019 14:35:05 Acute pharyngitis 105695538 J02.9 salt water gargles, otc pain medication as needed, rapid TC negative, culture sent out for strep Hemoptysis 05929457 R04. 2 Vaginitis 66408774 N76.0 given as pt often gets yeast infections with antibioitc s Cough 59772414 R05 will do chest xray to rule out pneumonia with presenting symptoms. Use tessalon and start zpack for possible pneumonia. 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 mother in ICU with lung process but tested negative for Cvodi 2 times. I spoke with her mom's ID doc Dr. Coleman today, she recc pt get tested naya to see if mom had exposure Anxiety 16669420 F41.9 pt is very anxious, mom in ICU. will treat with low dose lorazepam. pt knows to avoid driving or drinking with med [id number] Jessica randolph MD Telehealt h [address] [facility] [address] [place] [address] 10/16/2019 06:53:27 10/16/2019 13:02:04 Major depression single episode, in partial remission 66407439 F32.4 pt with low mood, anxiety, lorazepam does not help much, will start on sertraline and getinto counseling .. pt is open to it now. [id number] Jessica randolph MD Main Office [address] [facility] [address] [place] [address] 01/18/2020 13:44:35 01/18/2020 15:21:51 Adult health examination 298052719 Z00.00 pap is overdue, she will set up appt with Dr Bang, long talk on weight loss and exercise, frieving over losing her mom from CHF. Screening for malignant neoplasm of cervix 795951805 Z12.4 pt will setup appt, has an IUD in place overdue for pap Body mass index 40+ - severely obese 554511070 E66.01 Z68.41 long talk on diet, exercise suggested WW Hypercholesterolemia 136 17890 E78.00 Malaise and fatigue 2717 60680 R53.81 check labs and look for early DM Family his tory of cardiac disorder 769446095 Z82.49 mother this year from CHF, pt is asking if there is a genetic component to be screened for, I asked her mothers primary in office for now the biggest risk factors are smoking, morbid obesity, poor eating habits and being sedentary, advised she start on those and I will loo into Major depr ession in full remission 61606336 F32.5 depression fully treated on sertraline 50mg, had a component of as well, pt is a single parent, I recc she resume therapy, she promises she will call Tobacco de pendence syndrome 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 F17.290 pt is aware if she feels any depression she should stop naya, [id number] Louis Davis MD Main Office [address] [facility] [address] [place] [address] 02/12/2020 12:56:04 02/12/2020 13:09:24 Tuberculosis screening 846497459 Z11.1 [id number] Ruben Sadler MD Main Office [address] [address] [place] [address] 02/15/2020 10:04:53 02/15/2020 10:26:21 Tuberculosis screening 921137800 Z11.1 [id number] Jessica randolph MD Main Office [address] [address] [place] [address] 06/13/2020 10:47:28 06/13/2020 11:34:44 Major depression single episode, in partial remission 81947402 F32.4 mood still low at times, grieving her mother, pt is interested in increasing dose to 100mg a day so will do that encouraged exercise. Insomnia 800113922 G47.0 9 uses lorazepam prn for sleep, not more than 1-2 times a week, she understand s its addictive potential Body mass index 40+ - severely obese 912228483 E66.01 long talk on diet, exercise suggested WW [id number] Jessica randolph MD Main Office [address] [address] [place] [address] 08/29/2020 09:55:52 08/29/2020 10:25:35 Laceration of finger 129613578 S61.219A left thumb 3 stitches healing well, no evidence of ligamentou s injury return in 1 week for suture removal [id number] Jessica randolph MD Main Office [address] [address] [place] [address] 11/13/2020 10:51:21 11/13/2020 12:17:06 Major depression single episode, in partial remission 66900478 F32.4 mood doing better, lost mom from CHF Morbid obesity 888631123 E66.01 will work on weight loss, I [...] 02/12/2020 1 [place] Bella Vicente Alexander [id number] Chris Alexander 02/15/2020 1 [place] Bella Vicente Alexander [id number] Chris Alexander 06/13/2020 1 [place] Bella Vicente Alexander [id number] Chris Alexander 08/29/2020 1 [place] Bella Vicente Alexander [id number] Chris Alexander 11/13/2020 1 [place] Bella Vicente Alexander [id number] Chris Alexander Notes Date Note Type Note Provider Name and Address Organization Details Recorded Time 06/13/2020 text/html Pt is here for a follow-up of depression and insomnia. PT lat her mother last year, still feels low at times, she is on sertraline 50mg but thinks she could increase the dose. Lives with her son, is a [employer] and finishing [employer] in 04/10. Sleep can be poor,s he takes lorazepam rarely. Got a dog which gts her active. Jessica stevenson [facility] 06/13/2020 12:34:05 08/29/2020 text/html Here for check o n sutures of left thumb. PT cut left thumb 3 days ago, to ER for stitches, healing well but still hurts, pt wanted check that bone ok. moves normally Jessica stevenson [facility] 08/29/2020 10:23:20 11/13/2020 text/html PT is here [...] at risk for heart problem. Jessica stevenson, [facility] 11/13/2020 11:38:15 OBGyn Episode No OBEpisode recorded.
--- OUTSIDE RECORDS SUMMARY | 2024-07-26 10:04 | XMS_ITS | Clinical Summary ---
Author Organization [facility] ity Address [address] [place] [address] Care Team Providers Care Laundry Supervisor Name Role Phone Unavailable Primary Care Provider [...]
--- OUTSIDE RECORDS SUMMARY | 2024-07-26 10:04 | XMS_ITS | Clinical Summary ---
Author Organization [facility] Address [address] [place] [address] Phone Care Team Providers Care General Intern Name Role Phone Pcp, Unknown Primary Care Provider Unavailabl e Allergies No known active allergies Medications Medication Sig Dispensed Refills Start Date End Date Status acetaminophen (TYLENOL) 500 MG tablet Take 500 mg by mouth every 6 (six) hours as needed for pain (specific location in comments). Active ibuprofen (ADVIL,MOTRIN) 200 MG tablet Take 200 mg by mouth every 6 (six) hours as needed for pain (specific location in comments). Active Encounters Date Type Department Care Team Description 06/06/2024 Ancillary Orders [facility],Outside Imaging [address] [place] [address] Hossein Catalan MD 06/06/2024 Ancillary Orders [facility],Outside [facility] [address] [place] [address] Unknown, MD Hossein 06/04/2024 2:00 PM EDT Office Visit [facility] [address] [place] [id number] Owen Cervantes PA-C Left shoulder pain (Primary Dx) 06/04/2024 Telephone [facility] [address] [place] [phone] Owen Cervantes PA-C WC-AIF ; AIF from Last 3 Months Social History Tobacco Use Types Packs/Day Years [...] Health Maintenance Due Date Last Done Comments DEPRESSION SCREENING 2002 SMOKING Hx and SMOKELESS TOBACCO SCREENING 06/11/2003 HEPATITIS C SCREENING 2008 HIV ONE-TIME SCREENING (18-65 YEARS) 2008 PAP SMEAR 06/11/2011 INFLUENZA VACCINE (#1) 2023 , 01/02/2019, 01/06/2018, Additional history exists COVID-19 VACCINE ( season) 2023 05/14/2021, 12/04/2020 Adult Td,Tdap Booster 08/26/2030 08/26/2020 , 12/19/2012, 07/11/2007, Additional history exists HIB VACCINES Completed 09/16/1991, 1990 MENINGOCOCCAL VACCINES (ACWY) Completed 07/11/2007 HEPATITIS A VACCINES Aged Out No long er eligible based on patient's age to complete this topic PNEUMOCOCCAL VACCINES (0-49 years) Aged Out No longer eligible based on patient's age to complete this topic Medical Devices Not on file Care Teams General Intern Relationship Specialty Start Date End Date Pcp, Unknown PCP - General 05/10/24 Additional Source Comments The information contained in this document represents components of the legal health record. It is not the complete legal health record.[facility]
== END 2024-07-26 10:03 | disposition home or self-care (01) ==
LOC: HO.PMCPRC 09:25
PROVIDERS: Visit Provider Internal Medicine
DX: M25.512 Pain in left shoulder (principal)
CPT/HCPCS: 64418; 76942

== ENCOUNTER 2024-08-01 15:14 | Outpatient (AMB) | payer OTHER, SELFPAY ==
--- OUTSIDE RECORDS SUMMARY | 2024-08-01 15:18 | XMS_ITS | Clinical Summary ---
Author Organization [facility] Address [address] [place] [address] Phone Care Team Providers Care Mixer And Blender Name Role Phone Pcp, Unknown Primary Care Provider Unavailabl e Allergies No known active allergies Medications acetaminophen (TYLENOL) 500 MG tablet Take 500 mg by mouth every 6 (six) hours as needed for pain (specific location in comments). Active ibuprofen (ADVIL,MOTRIN) 200 MG tablet Take 200 mg by mouth every 6 (six) hours as needed for pain (specific location in comments). Active Encounters Date Type Department Care Team Description 06/06/2024 Ancillary Orders [facility],Outside Imaging [address] [place] [address] Unknown, MD Hossein 06/06/2024 Ancillary Orders [facility],Outside [facility] [address] [place] [address] Unknown, MD Hossein 06/04/2024 2:00 PM EDT Office Visit [facility] [address] [place] [phone] Owen Cervantes PA-C Left shoulder pain (Primary Dx) 06/04/2024 Telephone [facility] [address] [place] [phone] Owen Cervantes PA-C WC-AIF ; AIF from [...] with a working camera? Not on file Comments Unknown Sex and Gender Information Value Date Recorded Sex Assigned at Not on file Legal Sex Female 2:45 PM EST Gender Identity Not on file [...] this topic Medical Devices Not on file Insurance [employer] [facility] PARTIAL [employer] [facility] NET PARTIAL HEALTH SAFETY NET PARTIAL [employer] NET PARTIAL [employer] NET PARTIAL [facility] PARTIAL [facility] Care Teams Mixer And Blender Relationship Specialty Start Date End Date Pcp, Unknown PCP - General 05/10/24 Additional Source Comments The information contained in this document represents components of the legal health record. It is not the complete legal health record.[facility]
--- OUTSIDE RECORDS SUMMARY | 2024-08-01 15:18 | XMS_ITS | Clinical Summary ---
Author Organization [facility] [address] ity Address [address] [place] [address] Care Team Providers Care Campaign Marketing Manager Name Role Phone Unavailable Primary Care Provider [...]
[2024-08-01 15:19] VITALS: BP 132/89; PULSE 122; O2SAT 97; BMI 44.0
--- NOTE | 2024-08-01 15:19 | MHC.OFFVIS ---
Vital Signs 08/01/24 15:19 Height 5 ft 7 in Weight 281 lb BMI 44.0 BP 132/89 Blood Pressure Location Lt brachial Pulse 122 H Pulse Oximetry (%) 97 Intake Visit Reasons: s/p left suprascapular NB Allergies shellfish derived [shellfish] Adverse Reaction (Verified 08/01/24 15:20) Rash Medication List - Last Reconciled 08/01/24 by Loni Mitchell LPN cyclobenzaprine 5 mg PO BID PRN gabapentin 200 mg (2 x 100 mg) PO BEDTIME meloxicam 7.5 mg PO DAILY PRN HPI Comments Details: The patient is a 34-year-old female presenting with chronic left shoulder pain s/p left diagnostic suprascapular NB. She reports no improvement in her pain during the hours following the diagnostic injection. The pain commenced following a work-related lifting incident about seven months ago, during which she heard a pop in the shoulder. Despite initial medical interventions, including MRI, cortisone injection (03/2024), and physical therapy, the pain persists and worsens, particularly with usage of arm in daily activities. MRI confirmed bursitis and tendinitis without significant rotator cuff tears. A mild cervical disc bulge was noted but is not directly causing the current symptomatology. She reports ever-changing hand symptoms, including swelling and episodic discoloration. Previous therapies have not produced significant relief, warranting further evaluation here for pain management strategies. - Onset: Approximately seven months ago. - Quality: Dull to excruciating, with radiation to the elbow. - Primary location: Left shoulder. - Radiation: From shoulder down to elbow. - Exacerbating factors: Arm usage, daily tasks such as dishwashing, dressing, and typing. - Relieving factors: No significant relief with prior treatments. - Functional impact: Significant interference with daily activities and tasks. - Affect: Pain impacts daily function and mood; patient reports emotional concern over chronicity. - Analgesia: Received cortisone shot under ultrasound, reported no relief, pain persists. - Adverse Effects: None reported related to pain medications. - Activities of Daily Living: Pain significantly impacts daily activities, including mobility, dressing, and personal care. - Aberrant Drug Related Behaviors: None reported. Prior: The patient is a 34-year-old female presenting with persistent left shoulder pain subsequent to a work-related incident on January 04, 2024. 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 The character of the pain is primarily a squeezing sensation localized to the shoulder blade and at times radiating down to the elbow. It is associated with activities such as raising her arm over her head (which causes a popping sensation) and reaching across her back, notably affecting her daily activities and work. Previous management included physical therapy and a steroid injection administered at the back of the shoulder 03/2024, both of which provided no lasting relief. The patient reports having used anti-inflammatory medications like Celebrex, without significant improvement. Currently, she is taking gabapentin and Flexeril for pain, primarily to aid sleep at night, although daytime pain persists. MRI shoulder reviewed, results as per below. MRI cervical spine reviewed, results as per below. Additionally, nerve conduction studies suggested some mild level of carpal tunnel syndrome. Denies current use of anticoagulants Denies implantable device, pacemaker or defibrillator. Endorses daily tobacco use, cigarette smoker. Denies current use of illicit substances. 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 - Neurological: Denies neck pain unless specific movement. - Vascular: Reports swelling and episodic finger discoloration. Physical Exam Vital Signs: Last Vital Signs Pulse 122 H 08/01/24 15:19 BP 132/89 08/01/24 15:19 Pulse Ox 97 08/01/24 15:19 BMI result Body Mass Index 44.0 General: awake, alert, oriented. Answers questions appropriately. Fully engaged in examination. Skin: warm, dry, intact HEENT: Normocephalic. Hearing intact. Cardiac: External chest normal in appearance. Respiratory: No cough, audible wheezing or stridor. Abdomen: without gross distension. MS: No obvious swelling or deformities. Left Shoulder: Tenderness to palpation posteriorly over left lateral scapula. No tenderness anterior shoulder. Neurological: Oriented to person, place, time and situation. Thought process intact. No gait abnormalities appreciated. Psychiatric: Appropriate mood and affect. Good judgment and insight. Results Reviewed Results Reviewed: 07/01/23 MRI C/S Findings: The vertebral bodies maintain normal height, alignment, and marrow signal intensity. The intervertebral discs maintain normal height and hydration. At C2-3, there is no evidence of disc herniation, central spinal stenosis, or neural foraminal narrowing. At C3-4, there is no evidence of disc herniation, central spinal stenosis, or neural foraminal narrowing. At C4-5, there is no evidence of disc herniation, central spinal stenosis, or neural foraminal narrowing. At C5-6, there is a mild disc bulge. There is no evidence of disc herniation, central spinal stenosis, or neural foraminal narrowing. At C6-7, there is no evidence of disc herniation, central spinal stenosis, or neural foraminal narrowing. At C7-T1, there is a tiny right paramedian disc protrusion. There is no central spinal or neural foraminal stenosis. There is a probable small central disc protrusion/herniation at the T3-4 level. This is only visualized on the sagittal images. The spinal cord demonstrates normal signal intensity. The visualized paraspinal soft tissues are unremarkable. Impression: 1. Tiny right paramedian disc protrusion at C6-7. No evidence of central spinal stenosis or neural foraminal narrowing. 2. Probable small central disc protrusion/herniation at the T3-4 level. 05/24/24 EMG IMPRESSION: 1. This is an abnormal study. 2. There is no electrodiagnostic evidence for ulnar neuropathy, brachial plexopathy, or cervical radiculopathy. 3. Perhaps mild left median neuropathy at the wrist, possibly left Carpal Tunnel Syndrome. CLINICAL COMMENT: Left mild Carpal Tunnel Syndrome findings most likely incidental, does not correlate with symptoms. 01/22/24 MRI Left Shoulder FINDINGS: -Study is somewhat limited due to patient body habitus and subsequent suboptimal [id number]. BONE MARROW: -No edema or abnormal infiltrating bone marrow signal. ROTATOR CUFF: -The supraspinatus tendon and muscle appear intact and normal in signal. -The infraspinatus tendon and muscle appear intact and normal in signal. -The subscapularis tendon and muscle appear intact and normal in signal. -The teres minor tendon and muscle appear intact and normal in signal. LONG HEAD OF THE BICEPS: -Normal in signal and intact. -Normal rotator interval appearance. ACROMION: -The undersurface of the acromion is neutral with no subacromial spur. ACROMIOCLAVICULAR JOINT: -Mild degenerative undersurface and superior first rib spurring. Minimal indentation upon the myotendinous junction of the anterior supraspinatus tendon outlet. LABRUM/CAPSULE: -No capsular abnormality. -Labrum is difficult to evaluate due to inherent signal loss from study limitation, although grossly no labral tear is evident. Mildly increased signal in the superior labrum is most likely on the basis of mild intrasubstance degeneration. No definite discrete tear. GLENOHUMERAL JOINT/MARROW: -No effusion. -No cartilage full-thickness defect. Mild cartilage thinning involving the articular aspect of the humerus medially. Glenoid cartilage is intact. OTHER: -There is a small amount of fluid/high signal in the subacromial/subdeltoid bursa suggesting mild bursitis. IMPRESSION: 1. Limited study due to patient habitus. 2. No fracture or gross tear of the rotator cuff. No rotator cuff muscular atrophy or abnormal signal. 3. Mild subacromial/subdeltoid bursitis. 4. Mild osteoarthrosis of the glenohumeral joint and AC joint. Assessment & Plan Assessment & Plan (1) Left shoulder pain: Code(s): M25.512 - Pain in left shoulder Category: Medical Plan The plan involves administering an intra-articular steroid injection under x-ray guidance to achieve improved pain relief for her chronic shoulder pain. The x-ray guidance aims to enhance the accuracy of steroid delivery, optimizing therapeutic effect while minimizing procedural risks. This approach was chosen due to inadequate relief from previous therapies. Workman's Compensation approval will be required before scheduling the procedure. I discussed with the patient the option of an intra-articular steroid injection under x-ray guidance. This procedure's risks include potential infection and procedural discomfort, while benefits include more precise medication placement, potentially providing pain relief. We discussed the need for Workman's Comp approval and scheduling following this. I emphasized careful monitoring for any post-procedural complications. Will schedule for fluoroscopy guided left shoulder intra-articular steroid injection with local anesthetic Patient was informed and verbally consented to the use of an ambient scribe for clinic note documentation during this visit. Patient Instructions: - Await contact for scheduling injection once approved. - Monitor for any changes in pain or new symptoms. - Continue with any self-care measures for symptom alleviation that have been previously helpful. - Report any post-procedural complications immediately. Coding Level of Care Code Est Pt Level 3 (55663) Complex EM visit Add On G2211 Diagnoses Left shoulder pain M25.512
--- OUTSIDE RECORDS SUMMARY | 2024-08-01 15:19 | XMS_ITS | Data Portability ---
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 help getting surgery for cholecyste ctomy set up Major depr ession in full remission 90069554 depression fully treated on sertraline 50mg, had a component of as well, pt is a single parent, I recc she resume therapy, she promises she will call [id number] Oneil Norman PA-C Main Office [address] [address] [place] [address] 06/24/2016 11:09:40 06/24/2016 12:06:06 Injury of ankle 053681625 S99.912A gave kyle wrap, rec cont aleve, ice, elevate - check xray - if + will get ortho eval, if neg. go to PT Injury of foot 970731707 S99.922A ? hairline fx 4th/5th metatarsal [id number] Gerry Simon MD Main Office [address] [address] [place] [address] 08/10/2018 14:46:19 08/10/2018 15:50:58 Otitis media 45437160 H66.92 Candidiasis of vagina 72 545866 B37.3 [id number] Jessica randolph MD Main Office [address] [address] [place] [address] 12/20/2018 13:34:26 12/20/2018 14:18:18 Adult health examination 911813734 Z00.00 pap is overdue, we will set up appt with Dr Bang, long talk on weight loss and exercise Screening for malignant neoplasm of cervix 003008248 Z12.4 we will setup appt, has an IUD in place overdue for pap Fatigue 82560960 R53.83 check labs and refer for sleep study, snores and is morbidly obese Body mass index 40+ - severely obese 989849839 E66.01 Z68.43 long talk on diet, exercise suggested WW [id number] Gerry Simon MD Main Office [address] [address] [place] [address] 01/05/2019 13:29:47 01/05/2019 14:35:05 Acute pharyngitis 113272227 J02.9 salt water gargles, otc pain medication as needed, rapid TC negative, culture sent out for strep Hemoptysis 71605257 R04. 2 Vaginitis 14850070 N76.0 given as pt often gets yeast infections with antibioitc s Cough 56831852 R05 will do chest xray to rule out pneumonia with presenting symptoms. Use tessalon and start zpack for possible pneumonia. 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 mother in ICU with lung process but tested negative for Cvodi 2 times. I spoke with her mom's ID doc Dr. Coleman today, she recc pt get tested naya to see if mom had exposure Anxiety 21085026 F41.9 pt is very anxious, mom in ICU. will treat with low dose lorazepam. pt knows to avoid driving or drinking with med [id number] Jessica randolph MD Telehealt h [address] [facility] [address] [place] [address] 10/16/2019 06:53:27 10/16/2019 13:02:04 Major depression single episode, in partial remission 49985355 F32.4 pt with low mood, anxiety, lorazepam does not help much, will start on sertraline and getinto counseling .. pt is open to it now. [id number] Jessica randolph MD Main Office [address] [facility] [address] [place] [address] 01/18/2020 13:44:35 01/18/2020 15:21:51 Adult health examination 496086853 Z00.00 pap is overdue, she will set up appt with Dr Bang, long talk on weight loss and exercise, frieving over losing her mom from CHF. Screening for malignant neoplasm of cervix 035711072 Z12.4 pt will setup appt, has an IUD in place overdue for pap Body mass index 40+ - severely obese 380057812 E66.01 Z68.41 long talk on diet, exercise suggested WW Hypercholesterolemia 136 99181 E78.00 Malaise and fatigue 2717 83203 R53.81 check labs and look for early DM Family his tory of cardiac disorder 563328631 Z82.49 mother this year from CHF, pt is asking if there is a genetic component to be screened for, I asked her mothers primary in office for now the biggest risk factors are smoking, morbid obesity, poor eating habits and being sedentary, advised she start on those and I will loo into Major depr ession in full remission 65259645 F32.5 depression fully treated on sertraline 50mg, had a component of as well, pt is a single parent, I recc she resume therapy, she promises she will call Tobacco de pendence syndrome 48853292 F17.290 pt is aware if she feels any depression she should stop naya, [id number] Louis Davis MD Main Office [address] [facility] [address] [place] [address] 02/12/2020 12:56:04 02/12/2020 13:09:24 Tuberculosis screening 225499728 Z11.1 [id number] Ruben Sadler MD Main Office [address] [address] [place] [address] 02/15/2020 10:04:53 02/15/2020 10:26:21 Tuberculosis screening 964697219 Z11.1 [id number] Jessica randolph MD Main Office [address] [address] [place] [address] 06/13/2020 10:47:28 06/13/2020 11:34:44 Major depression single episode, in partial remission 71310562 F32.4 mood still low at times, grieving her mother, pt is interested in increasing dose to 100mg a day so will do that encouraged exercise. Insomnia 290361752 G47.0 9 uses lorazepam prn for sleep, not more than 1-2 times a week, she understand s its addictive potential Body mass index 40+ - severely obese 012837452 E66.01 long talk on diet, exercise suggested WW [id number] Jessica randolph MD Main Office [address] [address] [place] [address] 08/29/2020 09:55:52 08/29/2020 10:25:35 Laceration of finger 509849093 S61.219A left thumb 3 stitches healing well, no evidence of ligamentou s injury return in 1 week for suture removal [id number] Jessica randolph MD Main Office [address] [address] [place] [address] 11/13/2020 10:51:21 11/13/2020 12:17:06 Major depression single episode, in partial remission 83753801 F32.4 mood doing better, lost mom from CHF Morbid obesity 922557679 E66.01 will work on weight loss, I [...] 02/12/2020 1 [place] [facility] Bella Vicente Alexander [id number] Chris Alexander 02/15/2020 1 [place] Bella Vicente Alexander [id number] Chris Alexander 06/13/2020 1 [place] Bella Vicente Alexander [id number] Chris Alexander 08/29/2020 1 [place] Bella Vicente Alexander [id number] Chris Alexander 11/13/2020 1 [place] Bella Vicente Alexander [id number] Chris Alexander Notes Date Note Type Note Provider Name and Address Organization Details Recorded Time 06/13/2020 text/html Pt is here for a follow-up of depression and insomnia. PT lat her mother last year, still feels low at times, she is on sertraline 50mg but thinks she could increase the dose. 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 Sleep can be poor,s he takes lorazepam rarely. Got a dog which gts her active. Jessica stevenson [facility] 06/13/2020 12:34:05 08/29/2020 text/html Here for check o n sutures of left thumb. PT cut left thumb 3 days ago, to ER for stitches, healing well but still hurts, pt wanted check that bone ok. moves normally Jessica stevenson [facility] 08/29/2020 10:23:20 11/13/2020 text/html PT is here [...] at risk for heart problem. Jessica stevenson, [facility] 11/13/2020 11:38:15 OBGyn Episode No OBEpisode recorded.
== END 2024-08-01 15:53 | disposition home or self-care (01) ==
LOC: HO.PMC 15:15
PROVIDERS: Visit Provider Registered Nurse Emergency
DX: M25.512 Pain in left shoulder (principal)
CPT/HCPCS: 99213; G2211

== ENCOUNTER → 2024-08-01 15:14 | Outpatient (BNVA) | payer OTHER, SELFPAY | PROVIDERS: Visit Provider Registered Nurse Emergency | DX: M25.512 Pain in left shoulder (principal) | CPT/HCPCS: 99212 ==

== ENCOUNTER → 2024-08-09 09:25 | Outpatient (BNVA) | payer OTHER, SELFPAY | PROVIDERS: Visit Provider Physician Assistant Medical | DX: M25.512 Pain in left shoulder (principal) | CPT/HCPCS: 99213 ==

== ENCOUNTER → 2024-09-10 09:40 | Outpatient (BNVA) | payer OTHER, SELFPAY | PROVIDERS: Visit Provider Physician Assistant Medical | DX: M25.512 Pain in left shoulder (principal) | CPT/HCPCS: 99213 ==

== ENCOUNTER 2024-09-25 06:12 | Outpatient (REF) | payer OTHER, SELFPAY ==
--- NOTE | ~2024-09-25 | FL_ITS ---
EXAMINATION: FL GUIDANCE ONLY HISTORY: M25.512 - Pain in left shoulder COMPARISON: Correlation is made with plain films of the left shoulder dated 01/05/2024. TECHNIQUE: Fluoroscopy time: 0.1 minutes. Cumulative Dose: 0.978 mGy. DAP: 0.0122 mGym2 Images: 2. FINDINGS: Fluoroscopic spot films demonstrate a needle in place and contrast material adjacent to the humeral head. FL/FL guidance in treatment room IMPRESSION: Fluoroscopy during procedure. Please see procedure report for additional information. Electronically signed by: Clay Hernández MD 09/25/2024 09:24 AM EDT
--- OUTSIDE RECORDS SUMMARY | 2024-09-25 06:14 | XMS_ITS | Clinical Summary ---
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
--- OUTSIDE RECORDS SUMMARY | 2024-09-25 06:15 | XMS_ITS | Data Portability ---
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 Jessica randolph MD Main Office [address] [facility] [address] [place] [address] 09/27/2014 12:42:51 09/27/2014 13:29:46 Morbid obesity 024163458 will work on weight loss and get to the gym [place] [id number] pt a sked for help getting surgery for cholecyste ctomy set up Major depr ession in full remission 04789169 depression fully treated on sertraline 50mg, had a component of as well, pt is a single parent, I recc she resume therapy, she promises she will call [id number] Oneil Norman PA-C Main Office [address] [facility] [address] [place] [address] 06/24/2016 11:09:40 06/24/2016 12:06:06 Injury of ankle 924983318 S99.912A gave kyle wrap, rec cont aleve, ice, elevate - check xray - if + will get ortho eval, if neg. go to PT Injury of foot 377462184 S99.922A ? hairline fx 4th/5th metatarsal [id number] Gerry Simon MD Main Office [address] [place] [address] 08/10/2018 14:46:19 08/10/2018 15:50:58 Otitis media 94196357 H66.92 Candidiasis of vagina 72 037640 B37.3 [id number] Jessica randolph MD Main Office [address] [place] [address] 12/20/2018 13:34:26 12/20/2018 14:18:18 Adult health examination 473576960 Z00.00 pap is overdue, we will set up appt with Dr Bang, gregorio talk on weight loss and exercise Screening for malignant neoplasm of cervix 325175874 Z12.4 we will setup appt, has an IUD in place overdue for pap Fatigue 90386247 R53.83 check labs and refer for sleep study, snores and is morbidly obese Body mass index 40+ - severely obese 922869964 E66.01 Z68.43 long talk on diet, exercise suggested WW [id number] Gerry Simon MD Main Office [address] [place] [address] 01/05/2019 13:29:47 01/05/2019 14:35:05 Acute pharyngitis 877979603 J02.9 salt water gargles, otc pain medication as needed, rapid TC negative, culture sent out for strep Hemoptysis 01872662 R04. 2 Vaginitis 55097277 N76.0 given as pt often gets yeast infections with antibioitc s Cough 44557541 R05 will do chest xray to rule out pneumonia with presenting symptoms. Use tessalon and start zpack for possible pneumonia. 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 mother in ICU with lung process but tested negative for Cvodi 2 times. I spoke with her mom's ID doc Dr. Coleman today, she recc pt get tested naya to see if mom had exposure Anxiety 22085383 F41.9 pt is very anxious, mom in ICU. will treat with low dose lorazepam. pt knows to avoid driving or drinking with med [id number] Jessica randolph MD Telehealt h [address] [facility] [address] [facility] [place] [address] 10/16/2019 06:53:27 10/16/2019 13:02:04 Major depression single episode, in partial remission 81718248 F32.4 pt with low mood, anxiety, lorazepam does not help much, will start on sertraline and getinto counseling .. pt is open to it now. [id number] Jessica randolph MD Main Office [address] [facility] [address] [facility] [place] [address] 01/18/2020 13:44:35 01/18/2020 15:21:51 Adult health examination 774462377 Z00.00 pap is overdue, she will set up appt with Dr Bang, long talk on weight loss and exercise, frieving over losing her mom from CHF. Screening for malignant neoplasm of cervix 900111630 Z12.4 pt will setup appt, has an IUD in place overdue for pap Body mass index 40+ - severely obese 650545880 E66.01 Z68.41 long talk on diet, exercise suggested WW Hypercholesterolemia 136 47440 E78.00 Malaise and fatigue 2717 14220 R53.81 check labs and look for early DM Family his tory of cardiac disorder 698585253 Z82.49 mother this year from CHF, pt is asking if there is a genetic component to be screened for, I asked her mothers primary in office for now the biggest risk factors are smoking, morbid obesity, poor eating habits and being sedentary, advised she start on those and I will loo into Major depr ession in full remission 64141609 F32.5 depression fully treated on sertraline 50mg, had a component of as well, pt is a single parent, I recc she resume therapy, she promises she will call Tobacco de pendence syndrome 38337465 F17.290 pt is aware if she feels any depression she should stop naya, [id number] Louis Davis MD Main Office [address] [facility] [address] [place] [address] 02/12/2020 12:56:04 02/12/2020 13:09:24 Tuberculosis screening 007456506 Z11.1 [id number] Ruben Sadler MD Main Office [address] [facility] [address] [place] [address] 02/15/2020 10:04:53 02/15/2020 10:26:21 Tuberculosis screening 135296906 Z11.1 [id number] Jessica randolph MD Main Office [address] [facility] [address] [place] [address] 06/13/2020 10:47:28 06/13/2020 11:34:44 Major depression single episode, in partial remission 70013360 F32.4 mood still low at times, grieving her mother, pt is interested in increasing dose to 100mg a day so will do that encouraged exercise. Insomnia 660083332 G47.0 9 uses lorazepam prn for sleep, not more than 1-2 times a week, she understand s its addictive potential Body mass index 40+ - severely obese 188586311 E66.01 long talk on diet, exercise suggested WW [id number] Jessica randolph MD Main Office [address] [facility] [address] [place] [address] 08/29/2020 09:55:52 08/29/2020 10:25:35 Laceration of finger 323361395 S61.219A left thumb 3 stitches healing well, no evidence of ligamentou s injury return in 1 week for suture removal [id number] Jessica randolph MD Main Office [address] [facility] [address] [place] [address] 11/13/2020 10:51:21 11/13/2020 12:17:06 Major depression single episode, in partial remission 06617557 F32.4 mood doing better, lost mom from CHF Morbid obesity 901203319 E66.01 will work on weight loss, I [...] None Recorded Advance Directives Directive N: Payers Insurance Date Sequence Insurance Name Policy Number Policy Ortiz Covered Member ID Ortiz Member ID Guarantor Name 06/24/2016 1 [facility] [id number] 99 Chris Alexander [id number] Chris Alexander 11/12/2020 1 [place] Zhang Benjamin [id number] Chris Alexander 01/07/2021 1 [place] Bella Zhang Benjamin [id number] Chris Alexander Notes Date Note Type Note Provider Name and Address Organization Details Recorded Time 06/13/2020 text/html Pt is here for a follow-up of depression and insomnia. PT lat her mother last year, still feels low at times, she is on sertraline 50mg but thinks she could increase the dose. 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 Sleep can be poor,s he takes lorazepam rarely. Got a dog which gts her active. Jessica stevenson, [facility] 06/13/2020 12:34:05 08/29/2020 text/html Here for check o n sutures of left thumb. PT cut left thumb 3 days ago, to ER for stitches, healing well but still hurts, pt wanted check that bone ok. moves normally Jessica stevenson [facility] 08/29/2020 10:23:20 11/13/2020 text/html PT is here [...] at risk for heart problem. Jessica stevenson, [facility] 11/13/2020 11:38:15 OBGyn Episode No OBEpisode recorded.
== END 2024-09-25 06:13 | disposition home or self-care (01) ==
LOC: CF 06:12
PROVIDERS: Visit Provider Anesthesiology
DX: M19.012 Primary osteoarthritis, left shoulder (principal); M25.512 Pain in left shoulder
CPT/HCPCS: 20610; J2003; J2795; J3301; Q9967

== ENCOUNTER 2024-09-25 08:55 | Outpatient (AMB) | payer OTHER, SELFPAY ==
[2024-09-25 09:03] VITALS: BP 123/63; PULSE 95; RESP 18; O2SAT 98
--- NOTE | 2024-09-25 09:03 | MHC.OFFVIS ---
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 Jaycee is very pleasant 76 years old female who came today in the injection area to receive therapeutic left glenohumeral joint injection. Informed consent was explained to the patient. Risks and benefits were known to the patient. The patient was positioned prone on operating table with pillow under the abdomen. The left shoulder and upper back of the patient was prepped with ChloraPrep and draped with sterile self adhesive utility towels. C-arm was brought over the operating field. The image of the left glenohumeral joint was demonstrated on the screen. Image of the pacemaker was also demonstrated on the screen. Tilting machine cephalad and ipsilateral to the site of the joint the head of the humeral bone was demonstrated on the screen. The local anesthetic mixture of lidocaine 2% mixed with ropivacaine 0.5% one-to-one was injected slightly lateral to the projection of the anterior medial silhouette of the humeral head to the skin forming a skin wheal. After that 22 gauge 3-1/2 inch needle was inserted through the skin wheal and advanced to were the silhouette of the joint in tunnel vision fashion. When needle entered the silhouette of the joint injection of the contrast performed delineating arthrogram. After that injection of the ropivacaine 0.5% 4 mL mixed with Kenalog 40 mg was performed into the joint. The patient tolerated injection well. The needle was withdrawn Band-Aid was applied. She was taken outside of the operating room to recovery room where she recovered uneventfully. Orders: Orders FL guidance in treatment room Today M25.512 - Pain in left shoulder Coding Level of Care Code Procedure Only Diagnoses Left shoulder pain M25.512 Osteoarthritis of left shoulder M19.012
== END 2024-09-25 09:21 | disposition home or self-care (01) ==
LOC: HO.PMCPRC 08:56
PROVIDERS: Visit Provider Anesthesiology
DX: M25.512 Pain in left shoulder (principal); M19.012 Primary osteoarthritis, left shoulder
CPT/HCPCS: 20610; 77002

== ENCOUNTER 2024-10-10 09:16 | Outpatient (AMB) | payer OTHER, SELFPAY ==
--- NOTE | 2024-10-10 09:18 | A.OFFVIS_ITS ---
Vital Signs 10/10/24 09:19 Height 5 ft 7 in Weight 278 lb BMI 43.5 BP 138/85 Blood Pressure Location Lt brachial Position Sitting Respiration 16 Pulse 100 Pulse Source Pulse Oximeter Pulse Oximetry (%) 97 Oxygen Delivery Method Room Air Intake Visit Reasons: LEFT INTRA-ARTICULAR SHOULDER INJECTION Supervisor Publications Production Required: No Accompanied by: Self / Same As Patient Allergies shellfish derived (shellfish) Adverse Reaction (Verified 10/10/24 09:20) Rash HPI Comments Details: The patient is a 34-year-old female presenting with chronic pain in the shoulder and neck region. The pain has been persistent despite previous interventions, including a nerve block and steroid injection, both of which provided no relief. The patient reports the pain as originating in the shoulder blade and neck, radiating down to the elbow but not beyond. Patient 2 weeks status post left intra-articular shoulder injection with no improvement in her pain. Previous imaging, including MRI of the neck and shoulder, showed normal results with a minor disc protrusion that was not deemed problematic. Physical therapy was attempted last February but did not yield any improvement in symptoms. The patient has been managing the pain with [id number]-[id number] medications such as Tylenol and ibuprofen. Gabapentin was previously prescribed but caused adverse effects like brain fog without alleviating the pain. - Onset: Persistent pain in the shoulder and neck region - Quality: Radiating pain from the shoulder blade and neck down to the elbow - Exacerbating factors: Using the arm too much - Relieving factors: None identified - Affect: Pain impacting daily activities and work ability - Analgesia: Current use of Tylenol and ibuprofen; considering duloxetine - Adverse Effects: Gabapentin caused brain fog - Activities of Daily Living: Pain interferes with work and daily tasks - Aberrant Drug Related Behaviors: None reported [facility] Medical History (Updated 09/25/24 @ 09:18 by Azam Valdes MD) Obesity Social History Patient Tobacco Use Status: Current everyday Tobacco user Current occupational status: employed 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 Answers questions appropriately. Fully engaged in examination. Skin: warm, dry, intact HEENT: Normocephalic. Hearing intact. Cardiac: External chest normal in appearance. Respiratory: No cough, audible wheezing or stridor. Abdomen: without gross distension. MS: No obvious swelling or deformities. LUE: Tenderness to palpation posteriorly over left lateral scapula. No tenderness anterior shoulder. No notable changes in skin color, texture, temperature. No edema. No hair loss. No muscle wasting. Neurological: Oriented to person, place, time and situation. Thought process intact. No gait abnormalities appreciated. Psychiatric: Appropriate mood and affect. Good judgment and insight. Vital Signs: Last Vital Signs Pulse 100 10/10/24 09:19 Resp 16 10/10/24 09:19 BP 138/85 10/10/24 09:19 Pulse Ox 97 10/10/24 09:19 Oxygen Delivery Method Room Air 10/10/24 09:19 BMI result Body Mass Index 43.5 Results Reviewed Results Reviewed: 07/01/23 MRI C/S Findings: The vertebral bodies maintain normal height, alignment, and marrow signal intensity. The intervertebral discs maintain normal height and hydration. At C2-3, there is no evidence of disc herniation, central spinal stenosis, or neural foraminal narrowing. At C3-4, there is no evidence of disc herniation, central spinal stenosis, or neural foraminal narrowing. At C4-5, there is no evidence of disc herniation, central spinal stenosis, or neural foraminal narrowing. At C5-6, there is a mild disc bulge. There is no evidence of disc herniation, central spinal stenosis, or neural foraminal narrowing. At C6-7, there is no evidence of disc herniation, central spinal stenosis, or neural foraminal narrowing. At C7-T1, there is a tiny right paramedian disc protrusion. There is no central spinal or neural foraminal stenosis. There is a probable small central disc protrusion/herniation at the T3-4 level. This is only visualized on the sagittal images. The spinal cord demonstrates normal signal intensity. The visualized paraspinal soft tissues are unremarkable. Impression: 1. Tiny right paramedian disc protrusion at C6-7. No evidence of central spinal stenosis or neural foraminal narrowing. 2. Probable small central disc protrusion/herniation at the T3-4 level. 05/24/24 EMG IMPRESSION: 1. This is an abnormal study. 2. There is no electrodiagnostic evidence for ulnar neuropathy, brachial plexopathy, or cervical radiculopathy. 3. Perhaps mild left median neuropathy at the wrist, possibly left Carpal Tunnel Syndrome. CLINICAL COMMENT: Left mild Carpal Tunnel Syndrome findings most likely incidental, does not correlate with symptoms. 01/22/24 MRI Left Shoulder FINDINGS: -Study is somewhat limited due to patient body habitus and subsequent suboptimal [id number]. BONE MARROW: -No edema or abnormal infiltrating bone marrow signal. ROTATOR CUFF: -The supraspinatus tendon and muscle appear intact and normal in signal. -The infraspinatus tendon and muscle appear intact and normal in signal. -The subscapularis tendon and muscle appear intact and normal in signal. -The teres minor tendon and muscle appear intact and normal in signal. LONG HEAD OF THE BICEPS: -Normal in signal and intact. -Normal rotator interval appearance. ACROMION: -The undersurface of the acromion is neutral with no subacromial spur. ACROMIOCLAVICULAR JOINT: -Mild degenerative undersurface and superior first rib spurring. Minimal indentation upon the myotendinous junction of the anterior supraspinatus tendon outlet. LABRUM/CAPSULE: -No capsular abnormality. -Labrum is difficult to evaluate due to inherent signal loss from study limitation, although grossly no labral tear is evident. Mildly increased signal in the superior labrum is most likely on the basis of mild intrasubstance degeneration. No definite discrete tear. GLENOHUMERAL JOINT/MARROW: -No effusion. -No cartilage full-thickness defect. Mild cartilage thinning involving the articular aspect of the humerus medially. Glenoid cartilage is intact. OTHER: -There is a small amount of fluid/high signal in the subacromial/subdeltoid bursa suggesting mild bursitis. IMPRESSION: 1. Limited study due to patient habitus. 2. No fracture or gross tear of the rotator cuff. No rotator cuff muscular atrophy or abnormal signal. 3. Mild subacromial/subdeltoid bursitis. 4. Mild osteoarthrosis of the glenohumeral joint and AC joint. Assessment & Plan Assessment & Plan (1) Left shoulder pain: Code(s): M25.512 - Pain in left shoulder Category: Medical Plan The patient will be prescribed duloxetine to manage the chronic pain in the shoulder, as previous medications like gabapentin caused adverse effects without relief. The patient is advised to follow up with orthopedic consultation to explore further management options. Physical therapy is not recommended at this time due to lack of previous benefit, but may be reconsidered based on orthopedic recommendations. Patient was informed and verbally consented to the use of an ambient scribe for clinic note documentation during this visit. Medications: New duloxetine 20 mg PO BID 60 caps 2RF Patient Instructions: - Start taking duloxetine as prescribed. - Follow up with salon customer experience specialist as scheduled. - Monitor for any side effects and report them. - Consider physical therapy based on orthopedic advice. Coding Level of Care Code Est Pt Level 3 (72617) Complex EM visit Add On G2211 Diagnoses Left shoulder pain M25.512
[2024-10-10 09:19] VITALS: BP 138/85; PULSE 100; RESP 16; O2SAT 97; BMI 43.5
--- OUTSIDE RECORDS SUMMARY | 2024-10-10 09:46 | XMS_ITS | Clinical Summary ---
Author Organization [facility] Address [address] [place] [phone] Phone Care Team Providers Care Commercial Lines Insurance Agent Name Role Phone Pcp, Unknown Primary Care Provider Unavailabl e Allergies No known active allergies Medications acetaminophen (TYLENOL) 500 MG tablet Take 500 mg by mouth every 6 (six) hours as needed for pain (specific location in comments). Active ibuprofen (ADVIL,MOTRIN) 200 MG tablet Take 200 mg by mouth every 6 (six) hours as needed for pain (specific location in comments). Active Social History Tobacco Use Types Packs/Day Years [...] Care Team (Late st Contact Info) Description 10/19/2024 10:00 AM EDT Office Visit [facility] [address] [place] [id number] Emil Maurer DO [address] [place] [address] Orthopedics & Sports Medicine, [place] [address] Health Maintenance Due Date Last Done Comments DEPRESSION SCREENING 2002 SMOKING Hx and SMOKELESS TOBACCO SCREENING 06/11/2003 HEPATITIS C SCREENING 2008 HIV ONE-TIME SCREENING (18-65 YEARS) 2008 PAP SMEAR 06/11/2011 COVID-19 VACCINE ( season) 2023 05/14/2021, 12/04/2020 Adult Td,Tdap Booster 08/26/2030 08/26/2020 , 12/19/2012, 07/11/2007, Additional history exists HIB VACCINES Completed 09/16/1991, 1990 MENINGOCOCCAL VACCINES (ACWY) Completed 07/11/2007 HEPATITIS A VACCINES Aged Out No long er eligible based on patient's age to complete this topic MENINGOCOCCAL VACCINES (B) Aged Out N o longer eligible based on patient's age to complete this topic PNEUMOCOCCAL VACCINES (0-49 years) Aged Out No longer eligible based on patient's age to complete this topic Medical Devices Not on file Insurance [facility] Care Teams Commercial Lines Insurance Agent Relationship Specialty Start Date End Date Pcp, Unknown PCP - General 05/10/24 Additional Source Comments The information contained in this document represents components of the legal health record. It is not the complete legal health record.[facility]
--- OUTSIDE RECORDS SUMMARY | 2024-10-10 09:46 | XMS_ITS | Clinical Summary ---
Author Organization [facility] ity Address [address] [place] [address] Care Team Providers Care Managing Director Name Role Phone Unavailable Primary Care Provider [...] Cervical Cancer Screening: P ap Smear 06/11/2011 HIV Screening 02/17/2022 Hepatitis C Screening 02/17/2022 Social Influencers of Health Screening 02/17/2022 COVID-19 Vaccine ( - 2023-2 5 season) 2023 Depression Screening 03/21/2024 Influenza Vaccine (#1) 2024 HIB Vaccines Aged [...]
--- OUTSIDE RECORDS SUMMARY | 2024-10-10 09:47 | XMS_ITS | Data Portability ---
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 on sertraline 50mg, had a component of as well, pt is a single parent, I recc she resume therapy, she promises she will call [id number] Oneil Norman PA-C Main Office [address] [facility] [address] [place] [address] 06/24/2016 11:09:40 06/24/2016 12:06:06 Injury of ankle 723812928 S99.912A gave kyle wrap, rec cont aleve, ice, elevate - check xray - if + will get ortho eval, if neg. go to PT Injury of foot 683526676 S99.922A ? hairline fx 4th/5th metatarsal [id number] Gerry Simon MD Main Office [address] [address] [place] [address] 08/10/2018 14:46:19 08/10/2018 15:50:58 Otitis media 68105191 H66.92 Candidiasis of vagina 72 848816 B37.3 [id number] Jessica randolph MD Main Office [address] [address] [place] [address] 12/20/2018 13:34:26 12/20/2018 14:18:18 Adult health examination 065345581 Z00.00 pap is overdue, we will set up appt with Dr Bang, gregorio talk on weight loss and exercise Screening for malignant neoplasm of cervix 218161245 Z12.4 we will setup appt, has an IUD in place overdue for pap Fatigue 42133527 R53.83 check labs and refer for sleep study, snores and is morbidly obese Body mass index 40+ - severely obese 693545895 E66.01 Z68.43 long talk on diet, exercise suggested WW [id number] Gerry Simon MD Main Office [address] [address] [place] [address] 01/05/2019 13:29:47 01/05/2019 14:35:05 Acute pharyngitis 375514111 J02.9 salt water gargles, otc pain medication as needed, rapid TC negative, culture sent out for strep Hemoptysis 18570046 R04. 2 Vaginitis 45840282 N76.0 given as pt often gets yeast infections with antibioitc s Cough 47662536 R05 will do chest xray to rule out pneumonia with presenting symptoms. Use tessalon and start zpack for possible pneumonia. [id number] Jessica randolph MD Main Office [address] [address] 07/23/2019 13:18:41 07/23/2019 16:27:01 Exposure to viral disease [id number] 77980 Z03.818 pt is a [employer], 2 days of chills, cough and had a fever 2 days ago. mother in ICU with lung process but tested negative for Cvodi 2 times. I spoke with her mom's ID doc Dr. Coleman today, she recc pt get tested naya to see if mom had exposure Anxiety 54051022 F41.9 pt is very anxious, mom in ICU. will treat with low dose lorazepam. pt knows to avoid driving or drinking with med [id number] Jessica randolph MD Telehealt [facility] [address] [facility] [address] [place] [address] 10/16/2019 06:53:27 10/16/2019 13:02:04 Major depression single episode, in partial remission 23126526 F32.4 pt with low mood, anxiety, lorazepam does not help much, will start on sertraline and getinto counseling .. pt is open to it now. [id number] Jessica randolph MD Main Office [address] [facility] [address] [place] [address] 01/18/2020 13:44:35 01/18/2020 15:21:51 Adult health examination 218519635 Z00.00 pap is overdue, she will set up appt with Dr Bang, long talk on weight loss and exercise, frieving over losing her mom from CHF. Screening for malignant neoplasm of cervix 309565880 Z12.4 pt will setup appt, has an IUD in place overdue for pap Body mass index 40+ - severely obese 323389742 E66.01 Z68.41 long talk on diet, exercise suggested WW Hypercholesterolemia 136 64417 E78.00 Malaise and fatigue 2717 84798 R53.81 check labs and look for early DM Family his tory of cardiac disorder 169685363 Z82.49 mother this year from CHF, pt is asking if there is a genetic component to be screened for, I asked her mothers primary in office for now the biggest risk factors are smoking, morbid obesity, poor eating habits and being sedentary, advised she start on those and I will loo into Major depr ession in full remission 27539362 F32.5 depression fully treated on sertraline 50mg, had a component of as well, pt is a single parent, I recc she resume therapy, she promises she will call Tobacco de pendence syndrome 63147433 F17.290 pt is aware if she feels any depression she should stop naya, [id number] Louis Davis MD Main Office [address] [facility] [address] [place] [address] 02/12/2020 12:56:04 02/12/2020 13:09:24 Tuberculosis screening 822877830 Z11.1 [id number] Ruben Sadler MD Main Office [address] [facility] [address] [place] [address] 02/15/2020 10:04:53 02/15/2020 10:26:21 Tuberculosis screening 728134036 Z11.1 [id number] Jessica randolph MD Main Office [address] [facility] [address] [place] [address] 06/13/2020 10:47:28 06/13/2020 11:34:44 Major depression single episode, in partial remission 51854042 F32.4 mood still low at times, grieving her mother, pt is interested in increasing dose to 100mg a day so will do that encouraged exercise. Insomnia 381715008 G47.0 9 uses lorazepam prn for sleep, not more than 1-2 times a week, she understand s its addictive potential Body mass index 40+ - severely obese 263692378 E66.01 long talk on diet, exercise suggested WW [id number] Jessica randolph MD Main Office [address] [facility] [address] [place] [address] 08/29/2020 09:55:52 08/29/2020 10:25:35 Laceration of finger 905986094 S61.219A left thumb 3 stitches healing well, no evidence of ligamentou s injury return in 1 week for suture removal [id number] Jessica randolph MD Main Office [address] [facility] [address] [place] [address] 11/13/2020 10:51:21 11/13/2020 12:17:06 Major depression single episode, in partial remission 52820431 F32.4 mood doing better, lost mom from CHF Morbid obesity 326490053 E66.01 will work on weight loss, I [...] Ortiz Member ID Guarantor Name 06/24/2016 1 [facility] [id number] Chris Alexander [id number] Chris Alexander 11/12/2020 1 [place] [facility] Bella Zhang Benjamin [id number] Chris Alexander 01/07/2021 1 [place] [employer] Bella Zhang Benjamin [id number] Chris Alexander Notes Date Note Type Note Provider Name and Address Organization Details Recorded Time 06/13/2020 text/html Pt is here for a follow-up of depression and insomnia. PT lat her mother last year, still feels low at times, she is on sertraline 50mg but thinks she could increase the dose. Lives with her son, is a [employer] and finishing [employer] school in 04/10. Sleep can be poor,s he takes lorazepam rarely. Got a dog which gts her active. Jessica stevenson [facility] 06/13/2020 12:34:05 08/29/2020 text/html Here for check o n sutures of left thumb. PT cut left thumb 3 days ago, to ER for stitches, healing well but still hurts, pt wanted check that bone ok. moves normally Jessica stevenson [facility] 08/29/2020 10:23:20 11/13/2020 text/html PT is here [...] at risk for heart problem. Jessica stevenson, [facility] 11/13/2020 11:38:15 OBGyn Episode No OBEpisode recorded.
== END 2024-10-10 09:42 | disposition home or self-care (01) ==
LOC: HO.PMC 09:16
PROVIDERS: Visit Provider Registered Nurse Emergency
DX: M25.512 Pain in left shoulder (principal)
CPT/HCPCS: 99213; G2211

== ENCOUNTER → 2024-10-10 09:16 | Outpatient (BNVA) | payer OTHER, SELFPAY | PROVIDERS: Visit Provider Registered Nurse Emergency | DX: M25.512 Pain in left shoulder (principal) | CPT/HCPCS: 99212 ==

== ENCOUNTER → 2024-10-10 10:19 | Outpatient (BNVA) | payer OTHER, SELFPAY | PROVIDERS: Visit Provider Physician Assistant Medical | DX: S46.912D Strain of unspecified muscle, fascia and tendon at shoulder and upper arm level, left arm, subsequent encounter (principal); X50.0XXD Overexertion from strenuous movement or load, subsequent encounter | CPT/HCPCS: 99213 ==

== ENCOUNTER → 2024-11-07 10:13 | Outpatient (BNVA) | payer OTHER, SELFPAY | PROVIDERS: Visit Provider Physician Assistant Medical | DX: M54.12 Radiculopathy, cervical region (principal) | CPT/HCPCS: 99213 ==